=== PATIENT | female | born 1965 | race Caucasian/White ===

== ENCOUNTER 2024-10-26 09:54 | Outpatient (OUT) | payer OTHER, SELFPAY ==
[2024-10-26 10:10] LABS: Basophils Percent Auto 0.5 % (0.2-2.0); Eosinophils Absolute Auto 0.1 10^3/uL (0.0-0.7); Eosinophils Percent Auto 2.2 % (0.9-7.0); Hematocrit 47.1 % (36.0-48.0); Hemoglobin 15.5 g/dL (12.0-16.0); Immature Granulocytes Abs Auto 0.05 10^3/uL (0.00-0.03); Immature Granulocytes Pct Auto 0.8 % (0.0-0.5); Lymphocytes Absolute Auto 2.5 10^3/uL (1.2-3.8); Lymphocytes Percent Auto 38.5 % (20.5-60.0); Mean Corpuscular HGB Conc 32.9 g/dL (29.9-35.2); Mean Corpuscular Hemoglobin 29.3 pg (26.7-34.0); Mean Platelet Volume 10.2 fL (9.5-13.5); Monocytes Absolute Auto 0.7 10^3/uL (0.3-0.8); Monocytes Percent Auto 11.4 % (1.7-12.0); Neutrophils Percent Auto 46.6 % (43.0-75.0); Platelet Count 239 10^3/uL (150-450); Red Blood Count 5.29 10^6/uL (4.20-5.40); Red Cell Distribution Width 13.1 % (11.0-15.0); White Blood Count 6.5 10^3/uL (4.0-11.0)
[2024-10-26 10:59] LABS: Alanine Aminotransferase 52 U/L (14-59); Albumin Globulin Ratio 1.2; Albumin Level 4.2 g/dL (3.4-5.0); Alkaline Phosphatase 78 U/L (46-116); Anion Gap 27.4; Aspartate Amino Transferase 27 U/L (15-37); Bilirubin Total 0.6 mg/dL (0.2-1.0); Calcium 9.1 mg/dL (8.5-10.1); Carbon Dioxide 12.5 mmol/L (21.0-32.0); Chloride 103 mmol/L (98-107); Chol HDL Ratio 4.4; Cholesterol 204 mg/dL (<=200); Estimated GFR (African America >60 (>=60 mL/min/1.73m^2); Estimated GFR (Non-African Ame 57 (>=60 mL/min/1.73m^2); Globulin 3.5 g/dL; Glucose 91 mg/dL (74-106); HDL Cholesterol 46 mg/dL (40-60); Potassium 3.9 mmol/L (3.5-5.1); Sodium 139 mmol/L (136-145); Thyroid Stimulating Hormone 1.768 uIU/mL (0.358-3.740); Total Protein 7.7 g/dL (6.4-8.2); Triglycerides 111 mg/dL (<=150); VLDL CHOLESTEROL 22.2 mg/dL
== END 2024-10-26 09:55 | disposition home or self-care (01) ==
LOC: LAB 09:55
PROVIDERS: PCP Internal Medicine; Visit Provider Internal Medicine
DX: Z00.00 Encounter for general adult medical examination without abnormal findings (principal)
CPT/HCPCS: 36415; 80053; 80061; 84443; 85025

== ENCOUNTER 2024-11-01 14:56 | Outpatient (OUT) | payer OTHER, SELFPAY ==
--- OUTSIDE RECORDS SUMMARY | 2024-11-01 15:18 | XMS_ITS | CCD ---
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 Name Role Phone Isaiah Barcenas Unavailable Jerod Callaway Unavailable Chidi Kwong Unavailable TANVIR, DR KAUFFMAN Consulting Unavailable BALL, DR KAUFFMAN Primary Care Unavailable BALL, DR KAUFFMAN Admitting Unavailable BALL, DR KAUFFMAN Attending Unavailable BALL, DR KAUFFMAN Primary Care Unavailable BALL, DR KAUFFMAN Admitting Unavailable BALL, DR KAUFFMAN Attending Unavailable BALL, DR KAUFFMAN Consulting Unavailable BRENT, DR JEROD Griffin Consulting Unavailable TINO RAMEY Primary Care Physician [phone] Juan Maddox Attending Unavailable Ball, Tino Primary Care Unavailable GonzalezDale Attending Unavailable GonzalezDale Admitting Unavailable Tanvir, Tino Primary Care Unavailable Nawaf Berry Attending Unavailable Nawaf Berry Admitting Unavailable Jerod Callaway Attending Unavailable Jerod Callaway Admitting Unavailable Tanvir, Tino Primary Care Unavailable Isaiah Barcenas Attending Unavailable Isaiah Barcenas Admitting Unavailable Tanvir, Tino Primary Care Unavailable Tanvir, Tino Primary Care Unavailable Gonzalez, Dale Admitting Unavailable Dale Gonzalez Attending Unavailable Tanvir, Tino Primary Care Unavailable GonzalezDale pino Admitting Unavailable GonzalezDale minor Attending Unavailable Tanvir, Tino Primary Care Unavailable Jerod Callaway Attending Unavailable Jerod Callaway Admitting Unavailable Tino Ramey Unavailable Allergies Allergy Classification Reported Allergen(s) Allergy Type Date of Onset Reaction(s) Facility (1 source) No Known Medication Allergies; Translations: [No Known Medication Allergies] Propensity to adverse reactions (disorder) [facility] Repository (1 source) patient allergy list reviewed by nurse or physicia Propensity to adverse reactions 5 Comment:Done Nextly Other Medications Current Medications Medication Drug Class(es) Dates Sig (Normalized) Sig (Original) acetaminophen 325 mg / HYDROcodone bitartrate 5 mg oral tablet (10 sources) Opioid Agonist Start: 02-04-2021 Alexandria 325 mg-5 mg oral tablet 1 tab(s), Oral, q6hr for pain, 12 tab(s), Refill(s) 0 Start Date: 02/04/21 Status: Ordered HYDROcodone-Acet aminophen 5-325 MG Not Available Oral for 3 Days Active Calcium Citrate (11 sources) Calcium Citrate Active cholecalciferol 0.025 mg oral tablet (1 source) Vitamin D Start: 02-11-2021 take 1 tablet by mouth once daily calcium (as carbonate)-vitamin D 90 mg-25 mcg (1000 intl units) oral tablet See Instructions, Refill(s) 0, one tablet by mouth daily Start Date: 02/11/21 Status: Ordered docusate sodium 100 mg oral capsule (1 source) Docusate Sodium 100 MG Not Available Oral for 10 Days Active Fish Oils (1 source) Start: 02-11-2021 take 1 capsule by mouth once daily EPA Fish Oil 1000 mg oral capsule 1,000 mg = 1 cap(s), Oral, Daily, Refills(s) 0 Start Date: 02/11/21 Status: Ordered hydrocortisone acetate 10 mg/ml / pramoxine hydrochloride 10 mg/ml rectal foam (1 source) Corticosteroid Proctofoam HC 1- 1 % Not Available External for 30 Days Active Magnesium (11 sources) Magnesium Active melatonin 5 mg oral tablet (12 sources) Start: 02-11-2021 take 5 mg by mouth once daily at bedtime melatonin 5 mg, Oral, Once a day (at bedtime), Refills(s) 0 Start Date: 02/11/21 Status: Ordered Melatonin Active meloxicam 15 mg oral tablet (15 sources) Nonsteroidal Anti-inflammatory Drug Start: 02-11-2021 take 1 tablet by mouth once daily meloxicam 15 mg oral tablet 15 mg = 1 tab(s), Oral, Daily, # 30 tab(s), Refills(s) 0 Start Date: 02/11/21 Status: Ordered Vitamin D (11 sources) Vitamin D Active work limitations (1 source) Start: 02-11-2021 work limitations work limitations, Patient seen today in clinic okay to return to work 02/11/21 no twisting, no lifting over 10lbs x 4 weeks, Print Requisition, Compound Start Date: 02/11/21 Status: Ordered Completed/Discontinued Medications Medication Drug Class(es) Dates Sig (Normalized) Sig (Original) hydrocortisone 25 mg/ml topical cream (13 sources) Corticosteroid Start: 12-30-2021 Anusol-HC 2.5 % 1 application Externally Twice a day for 14 days Dec, Not-Taking lidocaine hydrochloride 0.02 mg/mg topical gel (14 sources) Antiarrhythmic, Amide Local Anesthetic Glydo 2 % Not Available External for 7 Days Not-Taking Problems Active Problems Problem Classification Problem Date Documented Date Episodic/Chronic Acute bronchitis (2 sources) Acute bronchitis; Translations: [Acute bronchitis due to other specified organisms] Onset: 12-18-2014 Episodic Anal and rectal conditions (15 sources) Anal fissure; Translations: [Anal fissure, unspecified] Onset: 12-30-2021 Resolved: 12-30-2021 Episodic Asthma (3 sources) Uncomplicated asthma; Translations: [Unspecified asthma, uncomplicated] Onset: 02-23-2014 Chronic E Codes: Fall (1 source) Fall; Translations: [Unspecified fall, initial encounter] Onset: 10-27-2022 Episodic Hemorrhoids (15 sources) Hemorrhoids; Translations: [Unspecified hemorrhoids] Onset: 12-30-2021 Resolved: 12-30-2021 Episodic Other connective tissue disease (1 source) H/O: arthrodesis; Translations: [Arthrodesis status] Episodic Other nervous system disorders (14 sources) Ulnar neuropathy; Translations: [Lesion of ulnar nerve, left upper limb] Chronic Other nervous system disorders (2 sources) Lesion of ulnar nerve, left upper limb Onset: 12-04-2021 Resolved: 01-01-2022 Chronic Other nervous system disorders (11 sources) Chronic pain; Translations: [Other chronic pain] Chronic Other nervous system disorders (5 sources) Other chronic pain Onset: 01-12-2022 Resolved: 05-29-2022 Chronic Other non-traumatic joint disorders (1 source) Pain in elbow; Translations: [Pain in unspecified elbow] Onset: 10-27-2022 Episodic Other nutritional; endocrine; and metabolic disorders (3 sources) Obese class I; Translations: [Body mass index 34.0-34.9, adult] Onset: 01-06-2016 Chronic Other nutritional; endocrine; and metabolic disorders (1 source) Obesity; Translations: [Obesity, unspecified] Chronic Other nutritional; endocrine; and metabolic disorders (1 source) Simple obesity ; Translations: [Other obesity due to excess calories] Onset: 01-06-2016 Chronic Other nutritional; endocrine; and metabolic disorders (1 source) Overweight; Translations: [Overweight] Episodic Residual codes; unclassified (2 sources) Obstructive sleep apnea syndrome; Translations: [Obstructive sleep apnea] Onset: 03-16-2016 Chronic Residual codes; unclassified (1 source) Symptom: generalized; Translations: [Other general symptoms and signs] Episodic Spondylosis; intervertebral disc disorders; other back problems (20 sources) Cervical disc disorder; Translations: [Cervical disc disorder, unspecified, unspecified cervical region] Onset: 11-03-2021 Resolved: 05-29-2022 Chronic Spondylosis; intervertebral disc disorders; other back problems (11 sources) Spinal stenosis, lumbar region with neurogenic claudication; Translations: [Radiculopathy, lumbar region] Onset: 06-25-2014 Resolved: 05-29-2022 Episodic Superficial injury; contusion (1 source) Contusion of hip; Translations: [Contusion of unspecified hip, initial encounter] Onset: 10-27-2022 Episodic Unclassified (1 source) Hemorrhage of anus and rectum; Translations: [Hemorrhage of anus and rectum] Onset: 04-09-2022 Unclassified (1 source) Z01.810 - Encounter for preprocedural cardiovascular examination; Translations: [Z01.810 - Encounter for preprocedural cardiovascular examination] Onset: 03-25-2022 Unclassified (1 source) K92.1 - Melena; Translations: [K92.1 - Melena] Onset: 02-13-2022 Unclassified (1 source) Z01.812 - Encounter for preprocedural laboratory examination; Translations: [Z01.812 - Encounter for preprocedural laboratory examination] Onset: 02-11-2022 Unclassified (1 source) M48.062 - Spinal stenosis, lumbar region with neurogenic claudication; Translations: [M48.062 - Spinal stenosis, lumbar region with neurogenic claudication] Onset: 12-11-2021 Unclassified (1 source) K62.89 - Other specified diseases of anus and rectum; Translations: [K62.89 - Other specified diseases of anus and rectum] Onset: 11-16-2021 Unclassified (1 source) Exposure to acute respiratory syndrome coronavirus 2; Translations: [Contact with and (suspected) exposure to COVID-19] Past or Other Problems Problem Classification Problem Date Documented Da te Episodic/Chronic Cardiac dysrhythmias (1 source) Palpitations; Translations: [Palpitations] Onset: 01-06-2016 Episodic Gastrointestinal hemorrhage (1 source) Melena Onset: 12-30-2021 Resolved: 12-30-2021 Episodic Malaise and fatigue (1 source) Malaise and fatigue; Translations: [Other malaise and fatigue] Onset: 12-18-2014 Episodic Neoplasms of unspecified nature or uncertain behavior (1 source) Neoplasm of uncertain behavior of skin; Translations: [Neoplasm of uncertain behavior of skin] Onset: 08-31-2017 Episodic Nonspecific chest pain (1 source) Chest pain; Translations: [Other chest pain] Onset: 01-06-2016 Episodic Other connective tissue disease (1 source) Muscle pain; Translations: [Unspecified myalgia and myositis] Onset: 01-06-2016 Episodic Other infections; including parasitic (1 source) History of parasitic disease; Translations: [Personal history of other infectious and parasitic disease] Onset: 01-06-2016 Episodic Other nervous system disorders (1 source) Paresthesia; Translations: [Paresthesia of skin] Onset: 06-25-2014 Episodic Other non-traumatic joint disorders (1 source) Joint pain; Translations: [Pain in unspecified joint] Onset: 01-06-2016 Episodic Other upper respiratory infections (1 source) Acute sinusitis; Translations: [Acute sinusitis, unspecified] Onset: 12-18-2014 Episodic Residual codes; unclassified (2 sources) Asymptomatic menopausal state Onset: 12-04-2021 Resolved: 01-01-2022 Episodic Residual codes; unclassified (1 source) Sleep disorder; Translations: [Persistent disorder of initiating or maintaining sleep] Onset: 06-03-2016 Episodic Sprains and strains (1 source) Neck sprain; Translations: [Neck sprain and strain] Onset: 06-25-2014 Episodic Results Test Name Value Interpretation Reference Range Facility Coding Summary.on 10-29-2022 Coding Summary. CD:[id number] Gh 0bWw+PGhlYWQ+PM8MKRPuU 06sgHAseV5AB3pUUM9RCGS YJTDAVD9RWB6nxRR7JSinT 2VybiAv ZmnulOTxIT08CNz2IGS4sA wtWLybwW8ycATbH6m9YeOp EG66mP49WTsjNVHkEqD0Xb ZpbjsgbWFy M8yxMyMcdIEcHoz+PHRhYm xlIHdpZHRoPScxMDAlJyBz vTzkJI0zYu7rGNClJXMrmB xhcHNlOiBj k9eyKQDfJAupMO0cyGmkL2 FilTT8VYPhp3z4Ey94qYE+ OXReVJV2jVllKNgav666Sq Jjp4bdKVB3 pJVjVTeqKQN6J68nx8H5GK LpAYQwWIX2rOX5fA1mtJmy iaicD9DazUOzSrS8ONA3uV ZbjR6hlYag zrxdaE2pGdd+H84MYD3FYZ AFWV6NEmr8X0XkKnouqNX+ KQ54JCRcHH92wNLmjZPbg8 holLn4XmGn UYYwMPZ8yAjyRZhvv2KgDP FeS67kaSNei2B2JCEjwWme qQWzIeIxxXV6yG2cHOsdle izg6ajqliz Awmam5htun15nA76Z43dQY goHRCcHAO3SBLeNYYcjPyr ql3pyL3nJv2+WRysm1nvi0 jtzFr2ObZu JPMserEauVftFUO2r8AxZt 65T4BmwZjnl0TaEik2fi39 iHGve9V1tQT8HGhrCDUuhJ 5gVOlwOhP4 SAXuSnFdaH22eKXqUCauQu 1mfUglqLobMB2gKYAkhqgp FUKqxI6iIBRegCMlnFeqNL 4wNTBpbjtm u723YhSkCJU4BGYidAFqT6 KgwS7eOwXzHBZdNJCjY8Rg sHAjZAudY633OJviLcE8IY LtpjBkI8Eb PBNcqVakFuO6y2W3Dt4Wb2 GwlxheQGL1GMhaWWBuBpAi EwAoVkW5W3XhCbm7JFNwbX kwBS4jS5Jz YZUjjhzrxxopxYY4PIApYS WrsZ63mEXcDNsvZx8fb7X4 k414MOTfLUJqxB83Fk1xmI ogMTBwdCBU zQ0qabxef8rrmyzkTtQqIN XmUJn4OYa9QYUvoCoeXpFl ANI1KkX3XXL1wTNmyJ1jqM sztqpkeC1o Oyc+Z81hfV3lXLP2LSW3ei biXTZdfnVrOZ57EZ98M4Ci PjwvdGFibGU+PGRpdiBzdH klHZ1kLhCs n6ncl9BeNHibG1MrMXXnGV dbZtz5EJTeTHK7jIC7hP8y IZJsJUari8W2kYL0D6Brdb Plwk7nk0wl NFRwBFodN45kgAIcj4C2WJ NkbBH9UPJcoJxcIeKqbZ95 Oyc+KUTxmKtvk4KoXwwce8 ueg1xgrEj5 QsEgKEJdsoDcxLduVQS2c1 DeFo71A65cXDruDYChBRRi MRWuFGBenIykdf3puZ6fDh 8+PGNvbCB3 kLS0yN8lROSyZuY4PEyqR6 38EiPoaOAoNhoql3hzr1sx tTy9QjIyQVXkxrFysRwhNF Q4t3EuFp41 W18eUAmlATHjVOMpPKNdHV WxvIndre3ejK1wZi3+PC9j l7siiq81wQ15cDS+PHRkIH J7kOqoHBjs XAPleW6kJQmdRbO8JHJxSu HlbT98pVTpXEukUt2yfJij bBuuWQ6mCYNxycaxd018Zc Rcu1viSZAp pAEqFYelUUZ0E59jg6S4JM FoJTQzBXJ4zLR9cN5njXkk bjogbGVmdDsgdmVydGljYW qrDKpcC475 IHRvcDsnPlBhdGllbnQgTm SeJNs7Q9PjJmn2NLVmxYta GH2meLViDChnIq7ygYpwjO dwGE2mBBLs tzzym122XkBki8qwXDEhcJ KoLGjtZAS9O13ds9O1LFMk KAKfMRN3fMR8rZ8jjDdqke ogbGVmdDsg nfEnbLeuGPytIWbnV579WD RvcDsnPkJpcnRoIERhdGU6 TU48RZ79qINfu9X4kBG3G7 BhZGRpbmct zxwxvKF5ATLuIRJnqA12Fu 2qnMraGn4gFHGiBQD8EWQz zGWsJ3YsnT9qQzNyIQLdXU JlB8RecPId RJkfP672FDrkFrA5FTKbam ZxC7VzIAWnoJppEjP1u0D7 Iu2BT6H3RQ85AX33iOTrk5 X3eUB3J6Jz TWOgkcjqcnxlnEU7LRJqKK XvnD88Sj9ydHmrYi7zSGIf PLD0OXKmhYAzE5WcrW4jHw AjMDAwMDAw Y6AoqJEbXWhpD573CKtmSw D2JVMhygMgA8ZhZIVuxYsv CzE3g5R2Op8EUBf9VN52SI 52oODvi2S5 gBY5A2CkZNZtikvnhihbzR N6TKOwHYRrmQ76Oo9zdExk Xn7eNUWsPBX4LVQxvAIkQ4 ByyE2aAgCs OJIcXXUxS7BhhBBvUVcnI9 91ILlpWyY6JFTrokCfL3Xc KIIsnAcjKjT5z9X9Ki7BSM YoPZ91UGW6 oAL0LG35DW36Q8CcSxbbaQ FibGU+PHRhYmxlIHdpZHRo JYdyLYMnWpQujRijSS8bLl 9yZGVyLWNv dHwecCXzHoSep0nhIWTqKN mhZZ8ozUguS2DfuVT4CULx l7o9Mn26P68yQ7XbxGP+PG LiyAE8cRA9 yN7bLnEpDnZ9ZHxzN538Qb EbkJXcPigch6yld9dfyZy4 JeC6VXFfopTcoOftJOJ0m1 ToPb17W93d IHdpZHRoPSIxNSUiIHZhbG fqni3ixD3vHu8+PGNvbCB3 cOA4lQ5uMrYtLiQ9LBhrA7 49InRvcCIv Kcndf7nea7hmeNc3OoKaUS UypkKlnMcyNRF6u9LeEu52 A3YgtNrie8FzBok6cb05iC Msq1B3vGJ2 X2WyDSIucnldgGIivNicVX 3dOYGzdkzmAMMpvM4nZFMz B0f7UfPtZgJ7KUsiB8Ariw S9LMZsiINm HHqxJQR8Y02xl1U1ZOWmPC YdWOP7tDJ9mQ9bzNjdzelp bGVmdDsgdmVydGljYWwtYW mdD980XIWw zWcbHXYwjL8eEEUvrQNrpL hgEF8iBUPenqqbVqiUXGli MAFUE3AWMIJIED02TB81zF Lik4C2mIY8 A8IxSUUswapftkruyOJ3GL AeHRVqtU47rLQzOYqqPq6x g8Z9g216IWVjPBRrxB27Fk 9udDogMTBw tLZRmR1cdxarf4phsjfwIe EkXUNbXTl7EHa7PIPajUqz QtSdKTI5SsB8DIQ9dCRnaL 1hbGlnbjog hW2xBjd+FTIqJXOjCCz6IX wvdGQ+XQFnJSS6uJtrFKtn UIHkoB7gAVWjJ8a5YcPdVo Z1QZrxR1Pu MZMmvgkbQe09nV9gWfLdYs G3TGoeF3YslgP1RBQfzCKd DZytPFZ8G33dj3V0JWTyZN FlPBL8wNN8 jG0xeInbbsxwpLBjvMldxj XzjWbfBXnhCOnlU555SIVc dEqpJtU7VVfoXJSjHX01UL 86oHBfi1X1 iOW8P2TpOHQujmnozpehwU E2XKFtSWLhbS41mPZwSKjs Zw4cu7L7z029ZLNnMQEchD 73Af4hfWix OURvvOIIiM6wvfxur0tncm siUoSkHHWfXCb2CEh2DQOo hXafDlJgBLG4OnX5ONX8fP KqiT0qjPgc gixuzK6nUgb+RmVtYWxlPC 90NS11nKUdf7T4sVD9E3Ze EKOivngivmudcGR1SBEhYP NpgB39cCOf DRaoKd1rl4X1i496DZJyFY DceD97Ve0ryVmcFKLddICS sH2hzdxqo5ihpyfkGsLsZI GvUKf4QVr7 KVUspRszLxXiDWG1UcL8BR I3nVVcxA3fnFkyqwbkkU6t Oyc+KZ8oqtxtqwB3OV56AG 19J2ZcDpbb dGFibGU+PHRhYmxlIHdpZH OpVHaeZDHcHlMdlQjyRU3w Pq2pTENnONGvpWfklMDfOt Opd6erVCAu AZrcUW7ttYbvG4IvhMO4IC Moo8u1Gb47E84sW6MoyFX+ CXRgrNL9qOQ0lJ4xNjNnJf V3NNgzX839 NjZgcXMzYtakv1tct9sndV p7CfCbRVTyosVuqAztWAT2 b0OiVp72M29sATfpCHGsYO IyMCUiIHZh fDhomm6luP4xYn1+PGNvbC Y6hMS5kZ7cZnAmKbA5COzo H202QpJwrICdVqyrB88iF4 JvdXA+PHRy Ahq7LASooKjyLT8qtGJsJL tnWx3fNQF8EfJiYkRbKQkz M7FlPCIiziavifhecVE4SC CeJJJxoU15 Je3ioLtiDg0lFNOfKBL6AO CznIBdL6ZzyI3oFnTtONQc XRPjQ2VldVLeYXqaX404UU fuBaH6HCBr akMiE8FyQADoyViaDqJ5y8 Y2Il0QzUioyTOyNB6mFpRb PRo9C3VgXyr9BMWggTqiJG 0ncGFkZGlu Sb8qxOpoeJxpGC6qEAZber xtp647PzLit4diMYPrxLHa PVpfEWU3P35zy4O6BKKhKI LtMSE7cEC7 rU2gbKcdxgqksQOmjNknub RwsPeoZWxsFJkvH140ISRf dRbdGzZHDvi1I1DlHvf4HF DioNgvUE6c yEKbRWwnCc2ffLwvmYljFV 9lSCPekcauh057MkMfy6dl VCRuwCSdHMfwJEU0B43uw9 U6MMRbRDTx GRT3iOR9bR6xiNipkaipjL VmdDsgdmVydGljYWwtYWxp N726GVJfjAvfXv1AYhz2A0 FdWrm1QRGs vYarUL4jqINgAZteGm8ztC lenFysDD4gTZNrbgwyt894 AeWaa0loPDUbfZZpVZcaYN O5G22zs1Z3 JUUyPRKcHXO9sZV6sM7aqV lnbjogbGVmdDsgdmVydGlj AFznRXeuZ118DUMepFtiZi BheWVyOjwv dGQ+WT85uh65T9JwBjvrYy o2EGVdOUE1vON2jV0xZRBx CLriy2B7rWN8T3KqimCjhg 8of3vjPASk ZTog (more content not included)... Normal [facility] Consent for Treatmenton 09-29 Consent for Treatment [id number] [id number]:127 Normal [facility] Discharge Instructionson Discharge Instructions [id number]. [id number]:127 Normal [facility] ED Clinical Summaryon 2022 ED Clinical Summary [address] [address] ED Clinical Summary Person Information Name: MILENA AQUINO Rubi/[facility] Age: 56 Years : 1965 Sex: Female Language: Croatian PCP: TINO RAMEY DO Marital Status: Visit Id: Visit Reason: Elbow injury - Minor; Hip injury - Minor; Fall; FELL ON ICE Speciality: Acuity: 4 Enc Type: Emergency Med Service: Emergency Arrival: 10/27/2022 10:47:01 Discharge: 10/27/2022 11:47:31 LOS: 000 01:00 Checkin: 10/27/2022 10:47:01 Checkout: 10/27/2022 11:47:31 Dispo Type: Home (Routine DC) EVENTS: Event Name Event Status Request Date/Time Start Date/Time Complete Date/Time Arrive Complete 10/27/2022 10:47:01 10/27/2022 10:47:01 10/27/2022 10:47:01 Document Home Meds Request 10/27/2022 10:47:01 Triage Complete 10/27/2022 10:47:01 10/27/2022 10:50:26 10/27/2022 10:50:26 Bed Assign Complete 10/27/2022 10:47:54 10/27/2022 10:47:54 10/27/2022 10:47:54 Dr Exam Complete 10/27/2022 10:47:54 10/27/2022 10:48:27 10/27/2022 10:48:27 RN Exam Complete 10/27/2022 10:47:54 10/27/2022 10:52:25 10/27/2022 10:52:25 Registration Complete 10/27/2022 10:48:27 10/27/2022 11:05:04 10/27/2022 11:05:04 Dr Exam Complete 10/27/2022 10:50:05 10/27/2022 10:50:05 10/27/2022 10:50:05 X-Ray Complete 10/27/2022 10:50:46 10/27/2022 11:02:04 10/27/2022 11:21:35 Workers Comp Request 10/27/2022 10:50:51 Reg Complete Request 10/27/2022 11:05:04 Reg Bed Request Complete 10/27/2022 11:05:04 10/27/2022 11:05:04 10/27/2022 11:05:04 Wet Read Complete 10/27/2022 11:21:35 10/27/2022 11:34:14 10/27/2022 11:34:14 Discharge Complete 10/27/2022 11:36:28 10/27/2022 11:47:38 10/27/2022 11:47:38 Transfer Complete 10/27/2022 11:47:38 10/27/2022 11:47:38 10/27/2022 11:47:38 ADDRESS: [address] [place] [phone] PHYS DOC NOTES: MEDICAL INFORMATION: Prescriptions Given: Medications to Continue with No Changes Other Medications acetaminophen-hydrocod one (Alexandria 325 mg-5 mg oral tablet) 1 Tablets By Mouth every 6 hours as needed for pain. Refills: 0. calcium-vitamin D (calcium (as carbonate)-vitamin D 90 mg-25 mcg (1000 intl units) oral tablet) one tablet by mouth daily. melatonin 5 Milligram By Mouth once a day (at bedtime). meloxicam (meloxicam 15 mg oral tablet) 1 Tablets [facility] 0. Patient seen today in clinic okay to return to work 02/11/21 no twisting, no lifting over 10lbs x 4 weeks. Refills: 0. omega-3 polyunsaturated fatty acids (EPA Fish Oil 1000 mg oral capsule) 1 Capsules By Mouth every day. PATIENT EDUCATION INFORMATION: Instructions: Musculoskeletal Pain Follow up: With: Address: When: [facility]: [facility] [phone] In 3 days 10/30/2022 DIAGNOSIS: Contusion, hip; Elbow pain; Fall Normal [facility] ED Note-Physicianon 10-27-19 ED Note-Physician Basic Information Time Seen: Juan Maddox DO 10/27/2022 10:48 Chief Complaint pt reports slipping and falling on ice, hit her l hip and elbow. reports pain to area. pt states this happened at work. History of Present Illness 56-year-old female comes to the ED for evaluation of injury status post fall. Patient states she was at work and slipped on the ice, falling on her left side. She complains of pain to the left elbow and the left hand. She denies strike her head pain no head, neck, back, chest or abdominal pain. No acute weakness or paresthesias. She presents via private vehicle. Ambulating without difficulty. No prior treatments. Review of Systems A 10 point review of systems is negative except as noted above. Medical and Surgical History: Reviewed and noted Social history: Lives at home Tobacco: Denies Physical Exam Vitals & Measurements T: 36.6 ?C(Oral) HR: 69(Peripheral) RR: 20 BP: 130/82 SpO2: 100% HT: 165 cm WT: 82 kg BMI: 30.12 Nurses notes and vital signs reviewed and patient is not hypoxic. General: The patient appears well, resting comfortably. Skin: Warm, dry. Head: Atraumatic. Neck: No JVD. Eye: Normal conjunctiva. Ears, Nose, Mouth, and Throat: Moist mucous membranes. Cardiovascular: Strong distal pulses. Chest wall: Respiratory: Respirations are nonlabored. Back: Normal range of motion. Musculoskeletal: Generalized tenderness over the left elbow. Full range of motion of flexion extension supination pronation. No soft tissue swelling, ecchymosis, erythema. No tenderness of the shoulder. Strong distal pulses. Denies tenderness over the left hip. Good range of motion. No gross deformity. Gastrointestinal: Urological: Neurological: Awake and alert. No focal deficits. Follows commands. Psychiatric: Cooperative. Medical Decision Making X-rays show no evidence of fracture or dislocation. The diagnostic limitation of x-rays were discussed. It was explained that follow-up imaging may be necessary. Educated to rice therapy. Patient reports this is a workers comp claim and is given [employer] followup. Patient was encouraged to return to the ED if symptoms worsen or change. Assessment/Plan Contusion, hip (S70.00XA: Contusion of unspecified hip, initial encounter) Elbow pain (M25.529: Pain in unspecified elbow) Fall (W19.XXXA: Unspecified fall, initial encounter) Orders: XR Elbow 3+ Views Left XR Hip 2-3 Views Left + Pelvis Disposition Plan Patient Discharge Condition Disposition: Discharged home Condition: Improved and stable Counseled: Patient and/or family were counseled to workup, results, treatment plan and follow-up recommendations Discharge Prescription List Prescriptions No active prescription medications Follow-up With When Contact Information [facility]: [facility] [phone] In 3 days 10/30/2022 EST Additional Instructions: Patient Education Musculoskeletal Pain Attestation Patient seen and evaluated by the physician creative assistant. Attending physician was present in the emergency department and supervised care. This visit was performed by both the physician and an APC. I performed all aspects of the MDM as documented. This report was transcribed using voice recognition software. Every effort was made to ensure accuracy, however, inadvertently computerized magazine filler mistakes may be present. Appropriate healthcare PPE was used in evaluating this patient. The patient was placed in a mask. The healthcare provider was wearing mask, gloves, and utilizing proper hand hygiene. All equipment was properly cleansed. Problem List/Past Medical History Ongoing No qualifying data Historical No qualifying data Procedure/Surgical History Cervical spinal fusion, section. Medications Inpatient No active inpatient medications Home calcium (as carbonate)-vitamin D 90 mg-25 mcg (1000 intl units) oral tablet, See Instructions EPA Fish Oil 1000 mg oral capsule, 1000 mg= 1 cap(s), Oral, Daily melatonin, 5 mg, Oral, Once a day (at bedtime) meloxicam 15 mg oral tablet, 15 mg= 1 tab(s), Oral, Daily [place] 325 mg-5 mg oral tablet, 1 tab(s), Oral, q6hr, PRN, Not taking work limitations, 0 Allergies No Known Medication Allergies Social History Alcohol - Denies Alcohol Use, 02/11/2021 Substance Abuse - Denies Substance Abuse, 02/11/2021 Tobacco - Denies Tobacco Use, 02/11/2021 Never (less than 100 in lifetime) Tobacco Use:., 02/11/2021 Lab Results No qualifying data available. Diagnostic Results XR Elbow 3+ Views Left 10/27/22 12:33:22 IMPRESSION: NO DISPLACED FRACTURE OR SIGNIFICANT POSTTRAUMATIC COMPLICATION IDENTIFIED. EXAM: XR Elbow 3+ Views Left DATE: 10/27/2022 CLINICAL HISTORY: Pain, Traumatic. COMPARISON: None available. TECHNIQUE: AP, lateral, oblique, and axial radiographs of the left elbow were obtained. FINDINGS: There is no fracture, significant joint effusion, dislocation, worrisome bone destruc (more content not included)... Normal [facility] Comment on above: Result Comment: Elec tronically Signed By: Jaskaran Bang PA-C\.br\Date and Time Signed: 10/27/22 14:15 EST\.br\Electronically Co-Signed By: Juan Maddox DO\.br\Date and Time Co-Signed: 10/27/22 17:32 EST ED Patient Education Noteon 10-27-2022 ED Patient Education Note Orthopedics Musculoskeletal Pain Musculoskeletal pain refers to aches and pains in your bones, joints, muscles, and the tissues that surround them. This pain can occur in any part of the body. It can last for a short time (acute) or a long time (chronic). A physical exam, lab tests, and imaging studies may be done to find the cause of your musculoskeletal pain. Follow these instructions at home: Lifestyle ? Try to control or lower your stress levels. Stress increases muscle tension and can worsen musculoskeletal pain. It is important to recognize when you are anxious or stressed and learn ways to manage it. This may include: ? Meditation or yoga. ? Cognitive or behavioral therapy. ? Acupuncture or massage therapy. ? You may continue all activities unless the activities cause more pain. When the pain gets better, slowly resume your normal activities. Gradually increase the intensity and duration of your activities or exercise. Managing pain, stiffness, and swelling ? Take hltk-gtu-xizngtq and prescription medicines only as told by your health care provider. ? When your pain is severe, bed rest may be helpful. Lie or sit in any position that is comfortable, but get out of bed and walk around at least every couple of hours. ? If directed, apply heat to the affected area as often as told by your health care provider. Use the heat source that your health care provider recommends, such as a moist heat pack or a heating pad. ? Place a towel between your skin and the heat source. ? Leave the heat on for 20?30 minutes. ? Remove the heat if your skin turns bright red. This is especially important if you are unable to feel pain, heat, or cold. You may have a greater risk of getting burned. ? If directed, put ice on the painful area. ? Put ice in a plastic bag. ? Place a towel between your skin and the bag. ? Leave the ice on for 20 minutes, 2?3 times a day. General instructions ? Your health care provider may recommend that you see a physical therapist. This person can help you come up with a safe exercise program. Do any exercises as told by your physical therapist. ? Keep all follow-up visits, including any physical therapy visits, as told by your health care providers. This is important. Contact a health care provider if: ? Your pain gets worse. ? Medicines do not help ease your pain. ? You cannot use the part of your body that hurts, such as your arm, leg, or neck. ? You have trouble sleeping. ? You have trouble doing your normal activities. Get help right away if: ? You have a new injury and your pain is worse or different. ? You feel numb or you have tingling in the painful area. Summary ? Musculoskeletal pain refers to aches and pains in your bones, joints, muscles, and the tissues that surround them. ? This pain can occur in any part of the body. ? Your health care provider may recommend that you see a physical therapist. This person can help you come up with a safe exercise program. Do any exercises as told by your physical therapist. ? Lower your stress level. Stress can worsen musculoskeletal pain. Ways to lower stress may include meditation, yoga, cognitive or behavioral therapy, acupuncture, and massage therapy. This information is not intended to replace advice given to you by your health care provider. Make sure you discuss any questions you have with your health care provider. Document Released: 09/13/2006 Document Revised: 08/26/2018 Document Reviewed: 10/13/2017 Elsevier Patient Education ? 2019 GoTable. Normal [facility] ED Patient Summaryon 023 ED Patient Summary [address] [address] Patient Discharge Instructions Person Information Name: MILENA AQUINO Age: 56 Years Arrival Date: 10/27/2022 10:47:01 Discharge Diagnosis: Contusion, hip; Elbow pain; Fall Primary Care Physician: TINO RAMEY DO Provider Information Primary Provider: Juan Maddox DO Advanced Vamp Marker:Jaskaran Bang PA-C The exam and treatment you received in the Emergency Department were for an urgent problem and are not intended as complete care. It is important that you follow up with a doctor, nurse practitioner, or physician?s creative assistant for ongoing care. If your symptoms become worse or you do not improve as expected and you are unable to reach your usual health care provider, you should return to the Emergency Department. We are available 24 hours a day. MILENA AQUINO has been given the following list of patient education materials, prescriptions and follow-up instructions: Follow-up Instructions: With: Address: When: [facility]: [facility] [phone] In 3 days 10/30/2022 In the event that this physician does not participate in your insurance network, please consult with your insurance company to find a nearby participating provider. Patient Education Materials: Musculoskeletal Pain A MESSAGE TO ALL PATIENTS REGARDING OPIOIDS PRESCRIPTION OPIOIDS: WHAT YOU NEED TO KNOW Prescription opioids can be used to help relieve xvbvdezd-pf-iigfli pain and are often prescribed following a surgery or injury, or for certain health conditions. These medications can be an important part of the treatment but also come with serious risks. It is important to work with your healthcare provider to make sure you are getting the safest, most effective care. WHAT ARE THE RISKS AND SIDE EFFECTS OF OPIOID USE? Prescription opioids carry serious risks of addiction and overdose, especially with prolonged use. An opioid overdose, often marked by slowed breathing, can cause sudden . The use of prescription opioids can have a number of side effects as well, even when taken as directed: ? Tolerance?meaning you might need to take more of the medication for the same pain relief ? Physical dependence?meaning you have symptoms of withdrawal when a medication is stopped ? Increased sensitivity to pain ? Constipation ? Nausea, vomiting, and dry mouth ? Sleepiness and dizziness ? Confusion ? Depression ? Low levels of testosterone that can result in lower sex drive, energy, and strength ? Itching and sweating RISKS ARE GREATER WITH: ? History of drug misuse, substance use disorder, or overdose ? Mental health conditions (such as depression or anxiety) ? Sleep apnea ? Older age (65 years and older) ? Avoid alcohol while taking prescription opioids. Also, unless specifically advised by your health care provider, medications to avoid include: ? Benzodiazepines (such as Xanax or Valium) ? Muscle relaxants (such as Soma or Flexeril) ? Hypnotics (such as Ambien or Lunesta) ? Other prescription opioids KNOW YOUR OPTIONS Talk to your health care provider about ways to manage your pain that don?t involve prescription opioids. Some of these options may actually work better and have fewer risks and side effects. Options may include: ? Pain relievers such as acetaminophen, ibuprofen, and naproxen ? Some medication that are also used for depression or seizures ? Physical therapy and exercise ? Cognitive behavioral therapy, a psychological, goal-directed approach, in which patients learn how to modify physical, behavioral, and emotional triggers of pain and stress. IF YOU ARE PRESCRIBED OPIOIDS FOR PAIN: ? Never take opioids in greater amounts or more often than prescribed. ? Follow up with your primary health care provider. o Work together to create a plan on how to manage your pain. o Talk about ways to help manage your pain that don?t involve prescription opioids. o Talk about any and all concerns and side effects. ? Help prevent misuse and abuse o Never sell or share prescription opioids. o Never use another person?s prescription opioids. ? Store prescription opioids in a secure place and out of reach of others (this may include visitors, children, friends, and family). ? Safely dispose of unused prescription opioids: Find your community drug take-back program or your pharmacy mail-back program, or flush them down the toilet, following guidance from the Food and Drug Administration (www.fda.gov/Drugs/Res ourcesForYou). ? Visit www.cdc.gov/drugoverdo se to learn about the risks of opioids abuse and overdose. ? If you believe you may be struggling with addiction, tell your health care technician and ask for guidance or call [facility]?S National Helpline at 8-243-694-HELP. v Source: [place] Department of Health and Human Services/ActiViews (more content not included)... Normal [facility] Workers Comp Formson 023 Workers Comp Forms [id number]. [id number] Normal [facility] XR Elbow 3+ Views Lefton XR Elbow 3+ Views Left Exam Date/Time: 10/27/2022 11:21 EST Reason for Exam: Pain, Traumatic Report IMPRESSION: NO DISPLACED FRACTURE OR SIGNIFICANT POSTTRAUMATIC COMPLICATION IDENTIFIED. EXAM: XR Elbow 3+ Views Left DATE: 10/27/2022 CLINICAL HISTORY: Pain, Traumatic. COMPARISON: None available. TECHNIQUE: AP, lateral, oblique, and axial radiographs of the left elbow were obtained. FINDINGS: There is no fracture, significant joint effusion, dislocation, worrisome bone destruction, radiodense foreign bodies, or other acute findings identified. Mild to moderate osteoarthritic changes are present, predominantly of the radial head and coronoid process of the proximal ulna. FINAL REPORT Dictated: 10/27/2022 12:30 pm Abram Silva MD Signed (Electronic Signature): 10/27/2022 12:30 pm Signed by: Abram Silva MD Transcribed by: FREDIS Technologist: ORB [facility] XR Hip 2-3 Views Left + Pelv kyleigh 10-27-2022 XR Hip 2-3 Views Left + Pelvis Exam Date/Time: 10/27/2022 11:21 EST Reason for Exam: Pain, Traumatic Report IMPRESSION: NO DISPLACED FRACTURE OR SIGNIFICANT POSTTRAUMATIC COMPLICATION IDENTIFIED. EXAM: XR Hip 2-3 Views Left + Pelvis DATE: 10/27/2022 CLINICAL HISTORY: Pain, Traumatic. COMPARISON: Chest, abdomen and pelvis CTs 02/04/2021. TECHNIQUE: An AP view of the pelvis, and AP and lateral radiographs of the left hip were obtained. FINDINGS: There is no displaced fracture, dislocation, pelvic diastases, evidence of significant hematoma, or other acute findings identified. Mild degenerative changes of the hips, pubic symphysis, and lumbosacral junction, and an approximately 1 cm bone island within the medial right ilium are again noted. FINAL REPORT Dictated: 10/27/2022 12:28 pm Abram Silva MD Signed (Electronic Signature): 10/27/2022 12:28 pm Signed by: Abram Silva MD Transcribed by: FREDIS Technologist: MELLISSA [facility] CBC AUTO DIFFon 08-26-2022 BASO # 0.0 103/ul Normal 0.0-0.1 [facility] Comment on above: Performed By: #### C BC #### [facility] [address] [place] [address] Dr. Re Nieto Basophils/100 WBC (Bld) 0.5 % Normal 0.2-2.0 [facility] Comment on above: Performed By: #### C BC #### [facility] [address] [place] [address] Dr. Re Nieto EO # 0.1 103/ul Normal 0.0-0.7 [facility] Comment on above: Performed By: #### C BC #### [facility] [address] [place] [address] Dr. Re Nieto Eosinophils/100 WBC (Bld) 1.1 % Normal 0.9-7.0 [facility] Comment on above: Performed By: #### C BC #### [facility] [address] [place] [address] Dr. Re Nieto Erythrocyte distribution width (RBC) [Ratio] 13.5 % Normal 11.0-15.0 [facility] Comment on above: Performed By: #### C BC #### [facility] [address] [place] [address] Dr. Re Nieto Hematocrit (Bld) [Volume fraction] 45.4 % Normal 36.0-48.0 [facility] Comment on above: Performed By: #### C BC #### [facility] [address] [place] [address] Dr. Re Nieto Hemoglobin (Bld) [Mass/Vol] 15.6 g/dL Normal 12.0-16.0 [facility] Comment on above: Performed By: #### C BC #### [facility] [address] [place] [address] Dr. Re Nieto IG # 0.02 10e3/ul Normal 0.00-0.03 [facility] Comment on above: Performed By: #### C BC #### [facility] [address] [place] [address] Dr. Re Nieto IG % 0.3 % Normal 0.0-0.5 [facility] Comment on above: Performed By: #### C BC #### [facility] [address] [place] [address] Dr. Re Nieto LYMPH # 2.6 103/ul Normal 1.2-3.8 [facility] Comment on above: Performed By: #### C BC #### [facility] [address] [place] [address] Dr. Re Nieto Lymphocytes/100 WBC (Bld) 39.6 % Normal 20.5-60.0 [facility] Comment on above: Performed By: #### C BC #### [facility] [address] [place] [address] Dr. Re Nieto MANUAL DIFF REQ NO Normal [facility] Comment on above: Performed By: #### C BC #### [facility] [address] [place] [address] Dr. Re Nieto MCH (RBC) [Entitic mass] 30.2 pg Normal 26.7-34.0 [facility] Comment on above: Performed By: #### C BC #### [facility] [address] [place] [address] Dr. Re Nieto MCHC (RBC) [Mass/Vol] 34.4 g/dL Normal 29.9-35.2 [facility] Comment on above: Performed By: #### C BC #### [facility] [address] [place] [address] Dr. Re Nieto MCV (RBC) [Entitic vol] 88.0 fL Normal 81.0-99.0 [facility] Comment on above: Performed By: #### C BC #### [facility] [address] [address] [address] Re Nieto MONO # 0.6 103/ul Normal 0.3-0.8 [facility] Comment on above: Performed By: #### C BC #### [facility] [address] [address] [address] Re Nieto Monocytes/100 WBC (Bld) 9.7 % Normal 1.7-12.0 [facility] Comment on above: Performed By: #### C BC #### [facility] [address] [address] [address] Re Nieto NEUT # 3.2 103/ul Normal 1.4-6.5 [facility] Comment on above: Performed By: #### C BC #### [facility] [address] [place] [address] Dr. Re Nieto Neutrophils/100 WBC (Bld) 48.8 % Normal 43.0-75.0 [facility] Comment on above: Performed By: #### C BC #### [facility] [address] [address] [address] Re Nieto Platelet mean volume (Bld) [Entitic vol] 10.4 fL Normal 9.5-13.5 [facility] Comment on above: Performed By: #### C BC #### [facility] [address] [address] [address] Re Nieto PLT 245 103/ul Normal 150-450 [facility] Comment on above: Performed By: #### C BC #### [facility] [address] [address] [address] Re Nieto RBC 5.16 106/ul Normal 4.20-5.40 [facility] Comment on above: Performed By: #### C BC #### [facility] [address] [address] [address] Re Nieto WBC 6.5 103/ul Normal 4.0-11.0 [facility] Comment on above: Performed By: #### C BC #### [facility] [address] [address] [address] Re Nieto LIPID PROFILEon 08-26-2022 CHOL-HDL RATIO NORM SEE BELOW Normal [facility] Comment on above: Result Comment: 3.3 - 4.4 LOW RISK 4.4 - 7.1 AVERAGE RISK 7.1 - 11.0 MODERATE RISK >11.0 HIGH RISK Performed By: #### L IPID, CMP #### [facility] [address] [address] [address] Re Nieto Cholesterol [Mass/Vol] 255 mg/dL Critically high <=200 [facility] Comment on above: Performed By: #### L IPID, CMP #### [facility] [address] [address] [address] Re Nieto Cholesterol in HDL [Mass/Vol] 49 mg/dL Normal 40-60 [facility] Comment on above: Performed By: #### L IPID, CMP #### [facility] [address] [address] [address] Re Nieto Cholesterol in LDL [Mass/Vol] 186.4 mg/dL Normal [facility] Comment on above: Performed By: #### L IPID, CMP #### [facility] [address] [address] [address] Re Nieto Cholesterol.total/C holesterol in HDL [Mass ratio] 5.2 {ratio} Normal [facility] Comment on above: Performed By: #### L IPID, CMP #### [facility] [address] [address] [address] Re Nieto HDL NORMAL > or = 60 mg/dl - LO W CARDIOVASCULAR RISK <40 mg/dl - HIGH CARDIOVASCULAR RISK Normal [facility] Comment on above: Performed By: #### L IPID, CMP #### [facility] [address] [id number] Re Nieto LDL CALC NORMAL SEE BELOW Normal [facility] Comment on above: Result Comment: <100 mg/dl OPTIMAL 100 - 129 mg/dl NEAR OR ABOVE OPTIMAL 130 - 159 mg/dl BORDERLINE HIGH 160 - 189 mg/dl HIGH >190 mg/dl VERY HIGH Performed By: #### L IPID, CMP #### [facility] [address] [address] [address] Re Nieto Triglyceride [Mass/Vol] 98 mg/dL Normal <=150 [facility] Comment on above: Performed By: #### L IPID, CMP #### [facility] [address] [address] [address] Re Nieto VLDL CALC 19.6 mg/dL Normal [facility] Comment on above: Performed By: #### L IPID, CMP #### [facility] [address] [address] [address] Re Nieto PROF 14(COMP METB)on 022 Albumin [Mass/Vol] 4.3 g/dL Normal 3.4-5.0 [facility] Comment on above: Performed By: #### L IPID, CMP #### [facility] [address] [place] [address] Dr. Re Nieto Albumin/Globulin [Mass ratio] 1.3 {ratio} Normal [facility] Comment on above: Performed By: #### L IPID, CMP #### [facility] [address] [place] [address] Dr. Re Nieto ALP [Catalytic activity/Vol] 57 U/L Normal 46-116 [facility] Comment on above: Performed By: #### L IPID, CMP #### [facility] [address] [place] [address] Dr. Re Nieto ALT [Catalytic activity/Vol] 25 U/L Normal 14-59 [facility] Comment on above: Performed By: #### L IPID, CMP #### [facility] [address] [place] [address] Dr. Re Nieto Anion gap [Moles/Vol] 12.7 mmol/L Normal [facility] Comment on above: Performed By: #### L IPID, CMP #### [facility] [address] [place] [address] Dr. Re Nieto AST [Catalytic activity/Vol] 16 U/L Normal 15-37 [facility] Comment on above: Performed By: #### L IPID, CMP #### [facility] [address] [address] [address] Re Nieto Bilirubin [Mass/Vol] 0.7 mg/dL Normal 0.2-1.0 [facility] Comment on above: Performed By: #### L IPID, CMP #### [facility] [address] [place] [address] Dr. Re Nieto Calcium [Mass/Vol] 9.4 mg/dL Normal 8.5-10.1 [facility] Comment on above: Performed By: #### L IPID, CMP #### [facility] [address] [place] [address] Dr. Re Nieto Chloride [Moles/Vol] 102 mmol/L Normal 98-107 [facility] Comment on above: Performed By: #### L IPID, CMP #### [facility] [address] [place] [address] Dr. Re Nieto CO2 [Moles/Vol] 27.3 mmol/L Normal 21.0-32.0 [facility] Comment on above: Performed By: #### L IPID, CMP #### [facility] [address] [place] [address] Dr. Re Nieto Creatinine [Mass/Vol] 0.83 mg/dL Normal 0.55-1.02 [facility] Comment on above: Performed By: #### L IPID, CMP #### [facility] [address] [place] [address] Dr. Re Nieto EGFR-AF RWANDAN >60 Normal >=60 [facility] Comment on above: Performed By: #### L IPID, CMP #### [facility] [address] [place] [address] Dr. Re Nieto EGFR-NON AF RWANDAN >60 Normal >=60 [facility] Comment on above: Performed By: #### L IPID, CMP #### [facility] [address] [place] [address] Dr. Re Nieto Globulin (S) [Mass/Vol] 3.3 g/dL Normal [facility] Comment on above: Performed By: #### L IPID, CMP #### [facility] [address] [address] [address] Re Nieto Glucose [Mass/Vol] 87 mg/dL Normal 74-106 [facility] Comment on above: Performed By: #### L IPID, CMP #### [facility] [address] [address] [address] Re Nieto Potassium [Moles/Vol] 4.0 mmol/L Normal 3.5-5.1 [facility] Comment on above: Performed By: #### L IPID, CMP #### [facility] [address] [place] [address] Dr. Re Nieto Protein [Mass/Vol] 7.6 g/dL Normal 6.4-8.2 [facility] Comment on above: Performed By: #### L IPID, CMP #### [facility] [address] [place] [address] Dr. Re Nieto Sodium [Moles/Vol] 138 mmol/L Normal 136-145 [facility] Comment on above: Performed By: #### L IPID, CMP #### [facility] [address] [address] [address] Re Nieto Urea nitrogen [Mass/Vol] 14.0 mg/dL Normal 7.0-18.0 [facility] Comment on above: Performed By: #### L IPID, CMP #### [facility] [address] [place] [address] Dr. Re Nieto Urea nitrogen/Creatinine [Mass ratio] 16.9 mg/mg Normal [facility] Comment on above: Performed By: #### L IPID, CMP #### [facility] [address] [place] [address] Dr. Re Nieto COVID-19 [facility] 04-08-2022 SARS-CoV-2 (COVID-19) RNA CARLEY+probe Ql (Unsp spec) Negative Normal Negative [facility] Comment on above: Order Comment: Healt hcare Worker?: N Result Comment: Testing for SARS-CoV-2 by RT-PCR This test was developed and its performance characteristics determined by [employer] and validated at the [facility]. This test has not been FDA cleared or approved. This test has been authorized by FDA under an Emergency Use Authorization (EUA). This test has been validated in accordance with the FDA's Guidance Document (Policy for Diagnostics Testing in Laboratories Certified to Perform High Complexity Testing under CLIA prior to Emergency Use Authorization for Coronavirus Disease-2019 during the Public Health Emergency) issued on December 28, 2019. This test is only authorized for the duration of time the declaration that circumstances exist justifying the authorization of the emergency use of in vitro diagnostic tests for detection of SARS-CoV-2 virus and/or diagnosis of COVID-19 infection under section 564(b)(1) of the Act, 21 U.S.C. 360bbb-3(b)(1), unless the authorization is terminated or revoked sooner. PERFORMED BY: [place] [id number] PATHOLOGIST [employer] OPERATOR JACKIE DAMON M.D. Performed By: #### C OVID 19 [facility] [place] #### [address] ECG 12 lead ECGon 03-25-2022 ECG 12 lead ECG [facility] [place] [address] [place] [address] Electrocardiograph Report Signed Patient: Milena Aquino MR#: [id number] 7 : 1965 Acct:[id number] Age/Sex: 56 / F ADM Date: 03/25/22 Loc: Room: Type: [facility] Attending Dr: Dale Gonzalez MD Ordering Provider: Dale Gonzalez MD Date of Service: 03/25/22 ECG/ECG 12 lead ECG: pre surgery Copies to: Test Reason : Blood Pressure : / mmHG Vent. Rate : 072 BPM Atrial Rate : 072 BPM P-R Int : 130 ms QRS Dur : 068 ms QT Int : 398 ms P-R-T Axes : 071 076 034 degrees QTc Int : 435 ms Sinus rhythm with premature atrial complexes Nonspecific ST abnormality Inferolateral leads Otherwise normal ECG When compared with ECG of 03-MAY-2018 08:38, premature atrial complexes are now present Confirmed by BK HER DO ([id number]) on 03/25/2022 5:38:26 PM Referred By: WM Electronically Signed By:BK HER DO Transcribed By: ZARINA Signed By Bk Her DO 03/25 5267 [facility] COVID-19 Antigenon 2 COVID-19 Antigen Healthcare Worker?: N Reference Range: Negative Negative results, from patients with symptom onset beyond five days, should be treated as presumptive and confirmation with a molecular assay, if necessary, for patient management, may be performed. Negative results do not rule out COVID-19 and should not be used as the sole basis for treatment or patient management decisions, including infection control decisions. Negative results should be considered in the context of a patient's recent exposures, history and the presence of clinical signs and symptoms consistent with COVID-19. The [employer] SARS Antigen ABA does not differentiate between SARS-CoV and SARS-CoV-2. This test was developed and its performance characteristic determined by [employer] and validated at [facility]. This test has not been FDA cleared or approved. This test has been authorized by FDA under an Emergency Use Authorization (EUA). This test has been validated in accordance with the FDA's Guidance Document (Policy for Diagnostics Testing in Laboratories Certified to Perform High Complexity Testing under CLIA prior to Emergency Use Authorization for Coronavirus Disease-2019 during the Public Health Emergency) issued on December 28, 2019. This test is only authorized for the duration of time the declaration that circumstances exist justifying the authorization of the emergency use of in vitro diagnostic tests for detection of SARS-CoV-2 virus and/or diagnosis of COVID-19 infection under section 564(b)(1) of the Act, 21 U.S.C. 360bbb-3(b)(1), unless the authorization is terminated or revoked sooner. SARS-CoV+SARS-CoV-2 (COVID-19) Ag [Presence] in Respiratory specimen by Rapid immunoassay Negative for SARS Antigen by ABA PERFORMED BY: [address] [place] [address] PATHOLOGIST LAYBOY OPERATOR JACKIE DAMON M.D. [facility] Comment on above: Performed By: #### C OVID-19 CIELO, SOFIANEG #### [facility] [address] Cielo Ag Negativeon 02-12-20 Cielo Ag Negative Negative Normal Negative [facility] Comment on above: Result Comment: This is a duplicate Cielo SARS Antigen (ABA) result to be used for statistical tracking purpose only. PERFORMED BY: [place] [address] PATHOLOGIST LAYBOY OPERATOR JACKIE DAMON M.D. Performed By: #### C OVID-19 CIELO, SOFIANEG #### [address] XR cerv spine AP/LAT/FLX/EXT on 12-11-2021 XR cerv spine AP/LAT/FLX/EXT [facility] [place] [address] [place] [address] XRay Report Signed Patient: Milena Aquino MR#: [id number] 7 : 1965 Acct:[id number] Age/Sex: 56 / F ADM Date: 12/11/21 Loc: [place] Room: Type: [facility] Attending Dr: Isaiah Barcenas MD Ordering Provider: Isaiah Barcenas MD Date of Service: 12/11/21 XR/XR cerv spine AP/LAT/FLX/EXT: PAIN Copies to: Isaiah Barcenas MD Cervical spine 12/11/2021. CLINICAL DATA: Neck pain. Cervical disc disorder. FINDINGS: 4 views of the cervical spine were obtained including lateral views in the neutral, flexion, and extension positions. There are postsurgical changes related to C5-C7 anterior and interbody fusion. The fusion hardware appears intact. There is loss of the normal cervical lordosis which could be related to muscle spasm or patient positioning. Vertebral alignment is normal and remains intact with flexion and extension. Mild disc space narrowing and discovertebral degenerative changes are identified at C4-C5. Facet arthritis is seen in the lower cervical spine. No prevertebral soft tissue swelling is noted. XR/XR cerv spine AP/LAT/FLX/EXT IMPRESSION: Postsurgical changes. Loss of the normal lordosis. Normal vertebral alignment and no instability with flexion or extension. Disc space narrowing and degenerative changes. Impression dictated by: Freeman Roberts Jr., M.D.12/11/2021 4:23 PM Dictation Location: [facility]- Transcribed By: [facility] 12/11/211622 Dictated By: Freeman Roberts Jr, MD 12/11/211620 Signed By: 12/11/211622 Normal [facility] XR lumbar spine 6V w bending on 12-11-2021 XR lumbar spine 6V w bending [facility] [place] [address] [place] [address] XRay Report Signed Patient: Milena Aquino MR#: [id number] 7 : 1965 Acct:[id number] Age/Sex: 56 / F ADM Date: 12/11/21 Loc: [place] Room: Type: [facility] Attending Dr: Isaiah Barcenas MD Ordering Provider: Isaiah Barcenas MD Date of Service: 12/11/21 XR/XR lumbar spine 6V w bending: M48.062 Copies to: Isaiah Barcenas MD Lumbar spine 12/11/2021. CLINICAL DATA: Lumbar stenosis with neurogenic claudication. FINDINGS: 6 views of the lumbar spine were obtained including standing lateral views in the neutral, flexion, and extension positions and standing neutral, rightward bending, and leftward bending frontal views. There is lumbar spinal curvature with the apex to the left. There is also mild posterior malalignment of L3 on L4. Malalignment at this level lessens with flexion and there is development of mild anterior malalignment of L4 on L5 with flexion. Disc space narrowing and discovertebral degenerative changes are identified, greatest at L3-L4 on the right. Facet arthritis is also seen. XR/XR lumbar spine 6V w bending IMPRESSION: Lumbar spinal curvature. Mild vertebral malalignment and mild instability with flexion. Disc space narrowing and degenerative changes Impression dictated by: Freeman Roberts Jr., M.D.12/11/2021 4:21 PM Dictation Location: [facility] Transcribed By: [facility] 12/11/211620 Dictated By: Freeman Roberts Jr, MD 12/11/21 1617 Signed By: 12/11/21 1621 [facility] [place] 11-14-2021 CNPN Telephone (SPNMAV) MILENA AQUINO ([id number]) 1965 F Date Time Provider Department 11/14/21 ESTRELLITA GUEVARA SPNMAV During your visit today, we recorded the following information about you: Eleanor Melquiades BOYLE 11/14/2021 7:18 AM Signed Please call pt and assist with scheduling spine intervention order from Dr Rodas Injection Type - Transforaminal Lumbar epidural steroid injection: Right; Level: L3-4 CPT 39418 Diagnosis: M54.16 +81mg ASA ok to take -DM Please review pre procedure instructions with pt Thank you Allergies As of Date: 11/14/2021 Noted Allergy Reaction CATS 09/19/2013 5 - Intolerance Date Reviewed: 11/13/2021 Reviewed by: Myesha Amezcua Ma - Fully Assessed Reason for Visit: Injections [199] Prescriptions as of 11/14/2021 - meloxicam (MOBIC) 15 mg tablet Take 15 mg by mouth once daily. - CALCIUM ORAL Take by mouth. - cholecalciferol, vitamin D3, (VITAMIN D3 ORAL) Take by mouth. - ibuprofen (MOTRIN) 800 mg tablet Take 800 mg by mouth every 12 hours as needed. - ALBUTEROL INHALATION Inhale as instructed. - MULTI-VITAMIN ORAL Take by mouth. - ASPIRIN (ASPIR-81 ORAL) Take by mouth. - [place]-3 Fatty Acids-Vitamin E (FISH OIL) 1,000 mg cap Take 1 capsule by mouth. - LUTEIN ORAL Take by mouth. - CALCIUM CARBONATE/VITAMIN D3 (VITAMIN D-3 ORAL) Take by mouth. - GLUC BURTON/CHONDR BURTON A NA/SODIUM (GLUCOSAMINE-CHONDROIT IN-SODIUM ORAL) Take by mouth. - melatonin 1 mg tab Take 10 mg by mouth daily at bedtime. Problem List As Of Date 11/14/2021 Noted Resolved Cervical disc herniation [M50.20] 08/31/2014 Encounter Status:Closed by ELEANOR WADDELL LPN on 11/14/21 [facility] CNOVon 11-13-2021 CNOV Office Visit (NSFRVW ) MILENA AQUINO ([id number]) 1965 F Date Time Provider Department 11/13/21 11:00 AM BERENICE RODAS NSFRVW During your visit today, we recorded the following information about you: Temperature Pulse Blood pressure Weight 98.3 degrees 82/minute 137/88 88.9 kg Height 1.651 m Berenice Rodas MD 11/13/2021 12:40 PM Signed SPINE SURGERY NEW PATIENT PCP: Tino Ramey DO REFERRING PROVIDER: Self SUBJECTIVE HISTORY OF PRESENT ILLNESS: Milena Aquino is a 55 year old female presenting alone. CHIEF COMPLAINT: Low back pain, RLE pain; LUE numbness PRECIPITATING EVENT: None DURATION OF SYMPTOMS: Greater Than 6 Months Ms. Aquino is a 55 year old female presenting today with complaints of low back pain with radiation to the right lower extremity. The pain is associated with numbness and weakness of the right lower extremity. She states her low back pain has been bothering her over the past six months. She saw her PCP who started her on Meloxicam. The pain is mitigated with rest. She has been off work and she is doing well with A combination of rest and Mobic. She reports cramping in the deltoids with activity and reaching overhead. She gets cramping in the shoulder with planking. She has numbness in the left fourth and fifth digits. She is dropping objects frequently with her left hand. 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 She has additionally been treated by a Chiropractor, as well as acupuncture and Meloxicam. She had a previous C5-[address] [place] [address] Edson Shah. Prior to her cervical surgery she was having significant pain and weakness in the left upper extremity, particularly through the triceps. She has some difficulty with her left hand currently. She states Dr. Shah wanted to do three levels, but she got a second opinion with Dr. Porter who recommended doing two levels. She has no health problems. She would prefer to go back to work with a 20 lb weight restriction. PAIN EVALUATION 11/13/2021 1100 Pain Level: 5 Pain Location: Neck-Posterior left shoulder to arm; lower back; right/left leg Description: Spasm;Cramping;Aching; Sore;Tingling;Numbness Duration Amount of Time: 6 Duration Units: Months Frequency: Continuous Intervention/Comfort measure: Medication Comments: pt presents with neck tightness that radiates into her left shoulder and down into her hand; increase in weakness and numbness/tingling in left arm; reports a lot of cramping; also reports lower back pain that extends bilaterally down her legs in the back; typically right is more affected than left; no numbness or tingling in legs; pain increase with any weight lifting over 20lbs; pt has done a lot of self directed physical therapy and has seen a chiropractor; pt states her pain is minimal but taken care of by meloxicam; prefers to use a hand rail while using stairs; AMBULATORY STATUS: Independent Community Distances ANTIPLATELET OR ANTICOAGULATION STATUS: No PREVIOUS CONSERVATIVE TREATMENTS: Ibuprofen 800 mg q12h prn 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 No past surgical history on file. No family history on file. Social History Tobacco Use - Smoking status: Never Smoker - Smokeless tobacco: Not on file Substance Use Topics - Alcohol use: Not on file - Drug use: Not on file ALLERGIES Allergen Reactions - Cats Intolerance MEDICATIONS: ibuprofen (MOTRIN) 800 mg tablet Take 800 mg by mouth every 12 hours as needed. ALBUTEROL INHALATION Inhale as instructed. MULTI-VITAMIN ORAL Take by mouth. ASPIRIN (ASPIR-81 ORAL) Take by mouth. [place]-3 Fatty Acids-Vitamin E (FISH OIL) 1,000 mg cap Take 1 capsule by mouth. LUTEIN ORAL Take by mouth. CALCIUM CARBONATE/VITAMIN D3 (VITAMIN D-3 ORAL) Take by mouth. GLUC BURTON/CHONDR BURTON A NA/SODIUM (GLUCOSAMINE-CHONDROIT IN-SODIUM ORAL) Take by mouth. melatonin 1 mg tab Take 1 mg by mouth daily at bedtime. REVIEW OF SYSTEMS: PAIN ASSESSMENT: See HPI. GENERAL: Denies fever, chills malaise and weight loss. HEENT: No recent change in vision or hearing. CARDIOVASCULAR: Denies chest pain, history of A-fib, valvular disease, or pacemaker/ICD. RESPIRATORY: Denies SOB, sputum production, and hemoptysis. GI: Denies GI ulcers, inflammatory disease, or liver disease. : Denies change in frequency or urgency, kidney disease, and burning with urination. MUSCULOSKELETAL: Back pain SKIN: Denies rash or itching. PSYCHOLOGICAL: Denies uncontrolled depression or anxiety. NEURO: Denies CVA, seizures, headaches. ENDOCRINE: Denies diabetes, thyroid disease. HEMATOLOGY/LYMPHOLOGY: Denies cancer, bleeding or clotting disorders, anemia,a (more content not included)... [facility] 11-13-2021 [facility] Telephone (SPNMAV) MILENA AQUINO ([id number]) 1965 F Date Time Provider Department 11/13/21 [facility] During your visit today, we recorded the following information about you: Sarah Salazar MA 11/13/2021 12:01 PM Signed Please contact patient and assist in scheduling the following injection per spine intervention order: TFESI Right L3-4 Diagnosis: M54.16 -DM -thinners Please give patient pre-injection instructions. Thank you. Candido Nava 11/13/2021 12:20 PM Signed Scheduled 12/18 @ 8:40am. Candido Nava 11/13/2021 12:20 PM Signed Addended by: CANDIDO NAVA on: 11/13/2021 12:20 PM Modules accepted: Orders Allergies As of Date: 11/13/2021 Noted Allergy Reaction CATS 09/19/2013 5 - Intolerance Date Reviewed: 11/13/2021 Reviewed by: Myesha Amezcua Ma - Fully Assessed Reason for Visit: Schedule Injection [3498] Primary Visit Diagnosis:Lumbar radiculopathy [M54.16] Order(s):SURGICAL REQUEST - ELECTIVE (04/2020) [[id number]] Order #: [id number]: 1 Prescriptions as of 11/13/2021 - meloxicam (MOBIC) 15 mg tablet Take 15 mg by mouth once daily. - CALCIUM ORAL Take by mouth. - cholecalciferol, vitamin D3, (VITAMIN D3 ORAL) Take by mouth. - ibuprofen (MOTRIN) 800 mg tablet Take 800 mg by mouth every 12 hours as needed. - ALBUTEROL INHALATION Inhale as instructed. - MULTI-VITAMIN ORAL Take by mouth. - ASPIRIN (ASPIR-81 ORAL) Take by mouth. - [place]-3 Fatty Acids-Vitamin E (FISH OIL) 1,000 mg cap Take 1 capsule by mouth. - LUTEIN ORAL Take by mouth. - CALCIUM CARBONATE/VITAMIN D3 (VITAMIN D-3 ORAL) Take by mouth. - GLUC BURTON/CHONDR BURTON A NA/SODIUM (GLUCOSAMINE-CHONDROIT IN-SODIUM ORAL) Take by mouth. - melatonin 1 mg tab Take 10 mg by mouth daily at bedtime. Problem List As Of Date 11/13/2021 Noted Resolved Cervical disc herniation [M50.20] 08/31/2014 Encounter Status:Closed by SARAH SALAZAR on 11/13/[address] [facility] MRI [facility] CONon 11-03-19 MRI [facility] CON EXAMINATION: MRI [facility] CON HISTORY: Radiculopathy due to cervical spondylosis COMPARISON: No relevant comparison available. TECHNIQUE: A variety of imaging planes and parameters were utilized for visualization of suspected pathology. FINDINGS: CRANIOCERVICAL AREA: Normal foramen magnum with no Chiari malformation. PARASPINAL AREA: Normal with no visible mass. BONES: Normal alignment with no acute fracture, spondylolisthesis or bone edema. Anterior fusion C5-C7 with resultant metallic susceptibility artifact. CORD: Normal caliber, contour, and signal intensity. CERVICAL DISC LEVELS: C2-C3: No significant disc/facet abnormality, spinal stenosis, or foraminal stenosis. C3-C4: No significant disc/facet abnormality, spinal stenosis, or foraminal stenosis. C4-C5: Disc desiccation. Mild to moderate diffuse disc/osteophyte complex most significant along the left neural foramen, axial image 13. No central canal or right foraminal stenosis. Mild to moderate left foraminal stenosis. C5-C6: Anterior fusion. No disc bulge or herniation. No central or foraminal stenosis C6-C7: Anterior fusion. No disc bulge or herniation. No central or foraminal stenosis C7-T1:. Disc desiccation. Mild disc bulge. No central or foraminal stenosis. IMPRESSION: Anterior fusion C5-C7 Degenerative changes most significant at C4-C5 where mild to moderate left foraminal stenosis is observed Electronically authenticated by: JEROD KENNEDY Date: 2021-11-03 14:34 Normal [facility] MRI [facility] WO CONon 11-03-19 22 MRI [facility] WO CON EXAMINATION: MRI [facility] CON HISTORY: Lumbosacral spondylosis with radiculopathy COMPARISON: No relevant comparison available. TECHNIQUE: A variety of imaging planes and parameters were utilized for visualization of suspected pathology. FINDINGS: For the purposes of numbering, sagittal T2 image # 8 extends from the T11 vertebral body superiorly to the S2-S3 level inferiorly. PARASPINAL AREA: Normal with no visible mass. BONES: Rotatory levocurvature centered at L3. Moderate degenerative changes. Signal changes lower endplate L3 upper endplate of L4, I suspect Modic type I changes with some bone marrow edema seen on STIR sequence CORD/CAUDA EQUINA: Normal caliber, contour, and signal intensity. DISC LEVELS: 12-L1: Posterior disc bulge measuring 2 mm. No central or foraminal stenosis L1-L2: Disc desiccation. Mild diffuse disc bulge. Moderate ligamentum flavum hypertrophy and facet osteoarthropathy. No central or foraminal stenosis. L2-L3: Moderate disc space narrowing and disc desiccation. Posterior broad-based disc protrusion extending up to 2.2 mm. Ligamentum flavum hypertrophy. No central or foraminal stenosis. L3-L4: Severe right and moderate left disc space narrowing with disc desiccation and endplate sclerosis. Moderate diffuse degenerative spondylosis. Posterior broad-based disc herniation the protrusion type most significant along the right neural foramen sagittal image 11. There is moderate trefoil narrowing of the central canal, axial image 14. Moderate right and no left foraminal stenosis L4-L5: No significant disc/facet abnormality, spinal stenosis, or foraminal stenosis. L5-S1: No significant disc/facet abnormality, spinal stenosis, or foraminal stenosis. IMPRESSION: Moderate diffuse degenerative changes most significant at L3-L4 where there is moderate central canal stenosis, and moderate right foraminal stenosis Electronically authenticated by: JEROD KENNEDY Date: 2021-11-03 14:26 Normal [facility] XR TSPINE 2 VIEWSon 11-03-19 22 XR TSPINE 2 VIEWS EXAMINATION: XR TSPI NE 2 VIEWS HISTORY: Pain in thoracic spine COMPARISON: No relevant comparison available. FINDINGS: BONES: Normal alignment of the thoracic vertebral bodies with no acute fracture or spondylolisthesis. Mild degenerative changes. Cervical fusion hardware. DISC SPACES: Normal. No significant disc height narrowing, subluxation, or endplate abnormality. PARASPINOUS: Negative. No paraspinous abnormality is seen. OTHER: Negative. IMPRESSION: Degenerative spondylosis Electronically authenticated by: JEROD KENNEDY Date: 2021-11-03 14:45 Normal [facility] Vital Signs Date Time Vital Sign Value Performing Clinician Facility 12-02-2022 14:15-0500 Body weight 80.74 kg Chidi Kwong Other [facility] Other 12-02-2022 14:15-0500 Diastolic blood pressure 80 mm[Hg] Chidi Kwong Other [facility] Other 12-02-2022 14:15-0500 SaO2% (BldA) [Mass fraction] 97 % Chidi Kwong Other [facility] Other 12-02-2022 14:15-0500 Systolic blood pressure 116 mm[Hg] Chidi Kwong Other [facility] Other 11-10-2022 09:45-0500 Body weight 80.38 kg Chidi Kwong Other [facility] Other 11-10-2022 09:45-0500 Diastolic blood pressure 60 mm[Hg] Chidi Kwong Other [facility] Other 11-10-2022 09:45-0500 SaO2% (BldA) [Mass fraction] 98 % Chidi Willardky Other [facility] Other 11-10-2022 09:45-0500 Systolic blood pressure 100 mm[Hg] Chidi Varghese Other [facility] Other 10-27-2022 10:48-0500 Body temperature 97.88 [degF] Juan Archibalde [facility] 10-27-2022 10:48-0500 Diastolic blood pressure 82 mm[Hg] Juan Maddox [facility] 10-27-2022 10:48-0500 Heart rate 69 /min Juan Archibalde [facility] 10-27-2022 10:48-0500 Respiratory rate 20 /min Juan Maddox [facility] 10-27-2022 10:48-0500 SaO2% (BldA) [Mass fraction] 100 % Juan Maddox [facility] 10-27-2022 10:48-0500 Systolic blood pressure 130 mm[Hg] Juan Maddox [facility] 05-29-2022 11:45-0400 Body weight 85.73 kg Chidi Willardky Other [facility] Other 05-29-2022 11:45-0400 Diastolic blood pressure 60 mm[Hg] Chidi Varghese Other [facility] Other 05-29-2022 11:45-0400 Systolic blood pressure 102 mm[Hg] Chidi Kwong Other [facility] Other 03-03-2022 12:40-0400 Body weight 91.63 kg Isaiah Barcenas Other [facility] Other 02-05-2022 16:15-0400 Body weight 90.72 kg Chidi Kwong Other [facility] Other 02-05-2022 16:15-0400 Diastolic blood pressure 70 mm[Hg] Chidi Kwong Other [facility] Other 02-05-2022 16:15-0400 SaO2% (BldA) [Mass fraction] 97 % Chidi Kwong Other [facility] Other 02-05-2022 16:15-0400 Systolic blood pressure 120 mm[Hg] Chidi Kwong Other [facility] Other 01-12-2022 16:00-0400 Body weight 91.17 kg Chidi Kwong Other [facility] Other 01-12-2022 16:00-0400 Diastolic blood pressure 72 mm[Hg] Chidi Kwong Other [facility] Other 01-12-2022 16:00-0400 Systolic blood pressure 130 mm[Hg] Chidi Kwong Other [facility] Other 01-01-2022 10:40-0400 Body weight 90.72 kg Isaiah Barcenas Other [facility] Other 12-30-2021 14:15-0400 Body weight 90.72 kg Jerod Hykes Other [facility] Other Encounters Encounter Date Encounter Type Care Provider Facility Start: 08-29-2023 End: 08-29-2023 ambulatory Tino Ramey Other [facility] Other Start: 08-29-2023 Telephone encounter Tino Ramey [facility] Start: 12-02-2022 End: 12-02-2022 ambulatory Chidi Varghese Other [facility] Other Start: 12-02-2022 Office outpatient vi sit 15 minutes Chidi Varghese [facility] Start: 11-23-2022 End: 11-23-2022 ambulatory Chidi Varghese Other [facility] Other Start: 11-23-2022 Telephone encounter Chidi Varghese [facility] Start: 11-10-2022 End: 11-10-2022 ambulatory Chidi Varghese Other [facility] Other Start: 11-10-2022 Office outpatient vi sit 25 minutes Chidi Varghese [facility] Start: 10-27-2022 End: 10-27-2022 Emergency department patient visit Juan Maddox Facility:[facility] Start: 10-27-2022 End: 10-27-2022 Emergency department patient visit Juan Maddox [facility] Start: 08-29-2022 Encounter for genera l adult medical examination without abnormal findings DR TINO RAMEY [facility] Start: 08-26-2022 End: 08-27-[address] TINO RAMEY Facility:[facility] Start: 08-26-2022 End: 08-27-2022 Encounter for general adult medical examination without abnormal findings DR TINO RAMEY Facility:[facility] Start: 08-19-2022 Adult health examination Tino Ramey Other [facility] Other Start: 05-29-2022 End: 05-29-2022 ambulatory Chidi Varghese Other [facility] [employer] Other Start: 05-29-2022 Office outpatient vi sit 25 minutes Chidi Varghese [facility] Start: 05-21-2022 (Procedure) Short Chidi Kwong [facility] Start: 05-21-2022 End: 05-21-2022 ambulatory Chidi Varghese Other [facility] Other Start: 04-09-2022 End: 04-09-2022 ambulatory Tino Ball Facility:[facility] Start: 04-08-2022 End: 04-08-2022 ambulatory Tino Ball Facility:[facility] Start: 03-25-2022 End: 03-25-2022 ambulatory Tino Ball Facility:[facility] Start: 03-03-2022 End: 03-03-2022 ambulatory Isaiah Barcenas Other [facility] Other Start: 03-03-2022 Office outpatient vi sit 15 minutes Isaiah Barcenas [facility] Start: 02-13-2022 End: 02-13-2022 ambulatory Tino Ball Facility:[facility] Start: 02-11-2022 End: 02-11-2022 ambulatory Jerod Cartagena Cesia Facility:[facility] Start: 02-05-2022 End: 02-05-2022 ambulatory Chidirobby Kwong Other [facility] Other Start: 02-05-2022 Office outpatient vi sit 15 minutes Chidi Avrghese [facility] Start: 01-27-2022 (Procedure) Short Chidi Kwong [facility] Start: 01-27-2022 End: 01-27-2022 ambulatory Chidi Varghese Other [facility] Other Start: 01-13-2022 End: 01-13-2022 ambulatory Chidi Varghese Other [facility] Other Start: 01-13-2022 Telephone encounter Chidi Kwong [facility] Start: 01-12-2022 End: 01-12-2022 ambulatory Chidi Kwong Other [facility] Other Start: 01-12-2022 Office consultation new/estab patient 60 min Chidi Varghese [facility] Start: 01-01-2022 End: 01-01-2022 ambulatory Isaiah Barcenas Other [facility] Other Start: 01-01-2022 Office outpatient vi sit 25 minutes Isaiah Barcenas [facility] Start: 12-30-2021 End: 12-30-2021 ambulatory Jerod Callaway Other [facility] Other Start: 12-30-2021 Office outpatient ne w 45 minutes Jerod Callaway [facility] Start: 12-11-2021 End: 12-11-2021 ambulatory Isaiah Barcenas Facility:[facility] Start: 12-04-2021 End: 12-04-2021 ambulatory Isaiah Barcenas Other [facility] Other Start: 12-04-2021 Office outpatient ne w 45 minutes Isaiah Barcenas [facility] Start: 11-16-2021 End: 11-16-2021 Emergency department patient visit Tino Ramey Facility:[facility] Start: 11-03-2021 End: 11-04-[address] TINO RAMEY Facility:[facility] Procedures Date Procedure Procedure Detail Performing Clinician Cervical arthrodesis Juan sadler Comment on above: 2013 section Juan verma Comment on above: 2000 Depression screening Melissa Ramey Other Payers Date Payer Category Payer Unknown 2022 Worker's Compensation [id number] 2021 Self-pay 1964 Unknown [id number] 2.16.84 [id number] 1964 Unknown [id number] 2.16.84 [id number] 1964 Unknown [id number] 2.16.8 [id number] 1959 Unknown [id number] Unknown [id number] 2.16.8 [id number] Unknown [id number] 2.16.8 [id number] Unknown [id number] 2.16.8 [id number] Unknown [id number] 2.16.8 [id number] Unknown [id number] 2.16.8 [id number] Unknown [id number] 2.16.8 [id number] Unknown [id number] 2.16.8 [id number] Worker's Compensation [id number] Social History Date Type Detail Facility Sex Assigned At [facility] Start: 02-11-2021 Tobacco smoking status Never s moked tobacco (finding) [facility] Functional Status Date Assessment Result Facility 10-27-2022 Functional Status N/A [facility] Clinical Notes 10-08-2021 to 12-02-2022 Note Date & Type Note Facility 12-02-2022 Evaluation note Encounter Date Diagnosis Assessment Notes Nov, Lumbar radiculopathy (ICD-10 - M54.16) 56 year old female here for follow up status post right L3 and L4 transforaminal epidural steroid injection under fluoroscopic guidance. Patient reports 75-80% pain relief as well as improved walking, standing and daily functions following procedure. She voices complaints of intermittent low back pain with radiation into the buttock on the right side with increased activity. Anatomy of spine discussed in detail with patient in regards to patients condition. Overall, she appears to be doing very well and does not require further treatment at this time. I recommend she increase her activities as tolerated. She is counseled against any excessive bending or twisting. She is advised to call the office if her pain returns. 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 She was last seen 5 months ago. She voices complaints of low back pain with radiation down the posterior aspect of the bilateral lower extremities to the knees, worse on the right. She feels her pain is aggravated with walking and standing. Anatomy of spine as well as different treatment options were discussed in detail with patient in regards to patients condition. I recommend we proceed with a right L3 and L4 transforaminal epidural steroid injection under fluoroscopic guidance. Risks and benefits of procedure explained to patient; patient verbalizes understanding. Oct, Sacroiliitis (ICD-10 - M46.1) If her pain persists or worsens, we can consider SI joint injections in the future. Oct, Arthritis of lumbosacral spine (ICD-10 - M47.817) If her pain persists or worsens, we can consider lumbar facet MBB in the future. Oct, Other chronic pain (ICD-10 - G89.29) Patient is encouraged to call the office if her symptoms return [facility] Other 01-31-2023 Evaluation + Plan noteExtracted from: Title:ED Note Author:Beti ESTRADA, Jaskaran Corona te:10/27/22 Contusion, hip (S70.00XA: Co ntusion of unspecified hip, initial encounter) Elbow pain (M25.529: Pain in unspecified elbow) Fall (W19.XXXA: Unspecified fall, initial encounter) Orders: XR Elbow 3+ Views Left XR Hip 2-3 Views Left + Pelvis [facility]01-31-2023 Hospital Discharge instructions Patient Education 10/27/2022 11:47:38 Musculoskeletal Pain Musculoskeletal Pain Musculoskeletal pain refers to aches and pains in your bones, joints, muscles, and the tissues thatsurround them. This pain can occur in any part of the body. It can last for a short time (acute) ora long time (chronic). A physical exam, lab tests, and imaging studies may be done to find the cause of your musculoskeletal pain. Follow these instructions at home: Lifestyle Try to control or lower your stress levels. Stress increases muscle tension and can worsen musculoskeletal pain. It is important to recognize when you are anxious or stressed and learn ways to manageit. This may include: ?Meditation or yoga. ?Cognitive or behavioral therapy. ?Acupuncture or massage therapy. You may continue all activities unless the activities cause more pain. When the pain gets better, slowly resume your normal activities. Gradually increase the intensity and duration of your activities or exercise. Managing pain, stiffness, and swelling Take isgf-rjb-jrpnilb and prescription medicines only as told by your health care provider. When your pain is severe, bed rest may be helpful. Lie or sit in any position that is comfortable, but get out of bed and walk around at least every couple of hours. If directed, apply heat to the affected area as often as told by your health care provider. Use theheat source that your health care provider recommends, such as a moist heat pack or a heating pad. ?Place a towel between your skin and the heat source. ?Leave the heat on for 20 30 minutes. ?Remove the heat if your skin turns bright red. This is especially important if you are unable to feel pain, heat, or cold. You may have a greater risk of getting burned. If directed, put ice on the painful area. ?Put ice in a plastic bag. ?Place a towel between your skin and the bag. ?Leave the ice on for 20 minutes, 2 3 times a day. General instructions Your health care provider may recommend that you see a physical therapist. This person can help youcome up with a safe exercise program. Do any exercises as told by your physical therapist. Keep all follow-up visits, including any physical therapy visits, as told by your health care providers. This is important. Contact a health care provider if: Your pain gets worse. Medicines do not help ease your pain. You cannot use the part of your body that hurts, such as your arm, leg, or neck. You have trouble sleeping. You have trouble doing your normal activities. Get help right away if: You have a new injury and your pain is worse or different. You feel numb or you have tingling in the painful area. Summary Musculoskeletal pain refers to aches and pains in your bones, joints, muscles, and the tissues thatsurround them. This pain can occur in any part of the body. Your health care provider may recommend that you see a physical therapist. This person can help youcome up with a safe exercise program. Do any exercises as told by your physical therapist. Lower your stress level. Stress can worsen musculoskeletal pain. Ways to lower stress may include meditation, yoga, cognitive or behavioral therapy, acupuncture, and massage therapy. This information is not intended to replace advice given to you by your health care provider. Make sure you discuss any questions you have with your health care provider. Document Released: 09/13/2006 Document Revised: 08/26/2018 Document Reviewed: 10/13/2017 [employer] Patient Education 2020 [employer]. Follow Up Care 10/27/2022 10:47:33 With:[facility]: [facility] [phone] Address:Unknown When:10/30/2022 11:36:26 [facility]09-02-2022 Evaluation note* Encounter Date Diagnosis Assessment Notes Treatment Notes Treatment Clinical Notes May, Lumbar radiculopathy (ICD-10 - M54.16) 56 year old female here for follow up status post right L3 and L4 transforaminal epidural steroid injection under fluoroscopic guidance. Patient reports 100% relief of her lower extremity pain as well as improved walking, standing and daily functions following procedure. She voices complaints of right sided low back pain. She denies any procedure related complications. Overall, she appears to be doing well. I recommend she increase her activities as tolerated. She is counseled against any excessive bending or twisting. She is advised to call the office if her pain returns. May, Sacroiliitis (ICD-10 - M46.1) If her pain persists or worsens, we can consider SI joint injections in the future. May, Arthritis of lumbosacral spine (ICD-10 - M47.817) If her pain persists or worsens, we can consider lumbar facet MBB in the future. May, Other chronic pain (ICD-10 - G89.29) Patient is encouraged to call the office if her symptoms return [facility] Other 06-07-2022 Evaluation note* Encounter Date Diagnosis Assessment Notes Treatment Notes Treatment Clinical Notes Feb, Lumbar stenosis with neurogenic claudication (ICD-10 - M48.062) Since the last visit the patient has seen pain management and has significant improvement of buttock and leg pain. She is very happy with her progress at this point we talked about holding off on any surgical intervention and I will reevaluate the patient in 2 months. In addition I reviewed the EMG of the cervical spine showing findings that are chronic and of no clinical significance. Feb, Cervical disc disorder (ICD-10 - M50.90) [facility] Other 05-12-2022 Evaluation note* Encounter Date Diagnosis Assessment Notes Treatment Notes Treatment Clinical Notes January, Lumbar radiculopathy (ICD-10 - M54.16) 56 year old female here for follow up status post interlaminar epidural steroid injection at the L4-5 level under fluoroscopic guidance. Patient reports 100% relief of her lower extremity pain following the procedure. She complains of low back stiffness today. Different treatment options were discused in detail with the patient, overall she appears to be doing very well and does not require further treatment at this time. I recommend she increase her activities as tolerated. She is counseled against any excessive bending or twisting. She is advised to call the office if her pain returns. January, Arthritis of lumbosacral spine (ICD-10 - M47.817) If her pain persists or worsens, we can consider lumbar facet MBB in the future. January, Other chronic pain (ICD-10 - G89.29) Patient is encouraged to call the office if her symptoms return [facility] Other 04-18-2022 Evaluation note* Encounter Date Diagnosis Assessment Notes Treatment Notes Treatment Clinical Notes Dec, Lumbar radiculopathy (ICD-10 - M54.16) 56 year old female presents with complaints of pain down the posterior aspect of the bilateral lower extremities to the knees. She states pain has been present for 8 months and describes it as a dull ache. She notes pain is worse with prolonged standing. She has had some relief in the following physical therapy and continues physical therapy exercises at home. She notes minimal relief from Meloxicam. She feels pain can negatively impact her daily activities and sleeping pattern. Prior to examining the patient, office notes were reviewed from referring provider, Dr Barcenas. Pertinent imaging were reviewed and discussed in detail with the patient which showed scoliosis and multilevel degenerative changes, facet arthropathy as well as moderate canal stenosis at L3-4 and moderate spinal and right foraminal steosis at L3-4. Anatomy of spine as well as different treatment options were discussed in detail with patient in regards to patients condition. I recommend we proceed with a L4 and L5 lumbar epidural steroid injection under fluoroscopic guidance. Risks and benefits of procedure explained to patient; patient verbalizes understanding. Dec, Lumbar degenerative disc disease (ICD-10 - M51.36) Continue with current treatment plan. Dec, Arthritis of lumbosacral spine (ICD-10 - M47.817) If her pain persists or worsens, we can consider lumbar facet MBB in the future. Dec, Other chronic pain (ICD-10 - G89.29) Continue physical therapy exercises as discussed Dec, Other Medical deci justino making shows a new problem to me with further workup planned or suggested with the potential for extensive treatment options that were considered with the most applicable given this patient's situation as noted above. Treatment options considered include a combination of physical therapy approaches, pharmacologic management, and interventional procedures. Those most applicable to the patient were discussed at this time. Risk of complications and/or morbidity and mortality is high given that acute and chronic pain poses a threat to life and bodily function if undertreated, poorly treated or with failure to maintain adequate treatment and timely followup. Given the serious and fluctuating nature of pain with extensive consideration for whenever pain changes, there always remains the possibility of prolonged functional impairment requiring constant patient reassessment and high-level medical decision making. The amount and complexity of data reviewed is high given that patient labs, radiology reports, and other test were obtained, reviewed and summarized as applicable from the physician portal and/or outside medical records. Pertinent positive and negative findings were considered in medical decision-making. [facility] Other 04-07-2022 Evaluation note* Encounter Date Diagnosis Assessment Notes Treatment Notes Treatment Clinical Notes Dec, Lumbar stenosis with neurogenic claudication (ICD-10 - M48.062) The patient symptoms have changed very little. She has yet to see pain management she is having difficulty seeing her pain management doctor in [place] and she would like to have a doctor out here; I am sending a referral for her across the nav[place] to Dr. Kwong. I independently reviewed her MRI. She has spinal stenosis at L3-4, moderate stenosis at L4-5 and malalignment at L2-3 L3-4 and L4-5. She has a ulnar neuropathy type problem but I yet have to see her EMG. She will try to bring the EMG with her the next visit. I independently reviewed the dynamic back x-ray showing translation at L3-4 with overall malalignment and kyphoscoliotic changes at L2-3 L3-4 L4-5. I think neurogenic claudication is her biggest issue. I reviewed the dynamic neck x-ray which actually looks quite good with no instability. I also independently reviewed her DEXA scan which shows overall good bone quality for age. I will see the patient again in 2 months after her visits with pain management. Dec, Ulnar neuropathy at elbow of left upper extremity (ICD-10 - G56.22) Dec, Cervical disc disorder (ICD-10 - M50.90) Dec, Asymptomatic age-related postmenopausal state (ICD-10 - Z78.0) Dec, Other She has been wo rking with restrictions and feels she is able to return to full duty now. She was given a slip for work. [facility] Other 04-05-2022 Evaluation note* Encounter Date Diagnosis Assessment Notes Treatment Notes Treatment Clinical Notes Dec, Anal fissure (ICD-10 - K60.2) Dec, Hemorrhoids (ICD-10 - K64.9) HAS HAD THIS FROM CHILDBIRTH PROCEED WITH COLONOSCOPY MEDICATION ORDERED AT THIS TIME. Dec, Blood in stool (ICD-10 - K92.1) DOES NOTICE IN THE STOOLS. [facility] Other 03-10-2022 NoteHNO ID: [id number] Author: Zari Hernandez MD Service: ? Author Type: Physician Type: Progress Notes Filed: 12/04/2021 1:47 PM Note Text: UNIVERSAL PROTOCOL / SAFETY CHECKLIST Procedure to be Performed: EMG Sign In: A Moment of CARE was completed. Personnel directly involved with the procedure wore the appropriate PPE (Personal Protective Equipment). Patient/Surrogate Stated/Verified: PATIENT VERIFIED(optional for EMERGENT procedures): Patient name, Date of , Relevant allergies and The intended procedure Time Out Communication: Intended patient and procedure match the source documents. Correct side/site marked and visible. Sign Out: SIGN OUT (optional for EMERGENT procedures): Post-procedure follow-up management communicated and Plan of Care Visit completed when applicable. Raghavendra Browne EMG Zari Hernandez, [facility]03-10-2022 Evaluation note* Encounter Date Diagnosis Assessment Notes Treatment Notes Treatment Clinical Notes Nov, Lumbar stenosis with neurogenic claudication (ICD-10 - M48.062) I have independently reviewed the MRI of the cervical spine and the report an MRI of the lumbar spine and report and plain x-ray of the thoracic spine. Patient thoracic spine is essentially unremarkable for age. Her cervical spine shows adjacent disc bulging at C4-5 and C7-T1 with a left foraminal narrowing at C4-5 and foramen at C7-T1 adequate. The patient has numbness of her left little finger this may be an ulnar neuropathy she is forwarding an EMG to us for review. In addition she is having neurogenic claudication that is mild to moderate in degree. She is functional but cannot do a large amount of activity. Amazing she can lift 80 pounds at 56 years old and does therapy practice. The patient is already scheduled for pain management I think it is a good idea to proceed. I have ordered a 6 view lumbar spine x-ray a dynamic cervical x-ray and will review the EMG with the patient at the end of December. Nov, Ulnar neuropathy at elbow of left upper extremity (ICD-10 - G56.22) Nov, Cervical disc disorder (ICD-10 - M50.90) Nov, Asymptomatic age-related postmenopausal state (ICD-10 - Z78.0) [facility] Other 02-17-2022 NoteHNO ID: [id number] Author: Berenice Rodas MD Service: ? Author Type: Physician Type: Progress Notes Filed: 11/13/2021 12:40 PM Note Text: SPINE SURGERY NEW PATIENT PCP: Tino Ramey DO REFERRING PROVIDER: Self SUBJECTIVE HISTORY OF PRESENT ILLNESS: Milena Aquino is a 55 year old female presenting alone. CHIEF COMPLAINT: Low back pain, RLE pain; LUE numbness PRECIPITATING EVENT: None DURATION OF SYMPTOMS: Greater Than 6 Months Ms. Aquino is a 55 year old female presenting today with complaints of low back pain with radiation to the right lower extremity. The pain is associated with numbness and weakness of the right lower extremity. She states her low back pain has been bothering her over the past six months. She saw her PCP who started her on Meloxicam. The pain is mitigated with rest. She has been off work and she is doing well with A combination of rest and Mobic. She reports cramping in the deltoids with activity and reaching overhead. She gets cramping in the shoulder with planking. She has numbness in the left fourth and fifth digits. She is dropping objects frequently with her left hand. 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 She has additionally been treated by a Chiropractor, as well as acupuncture and Meloxicam. She had a previous C5-[address] [place] [address] Edson Shah. Prior to her cervical surgery she was having significant pain and weakness in the left upper extremity, particularly through the triceps. She has some difficulty with her left hand currently. She states Dr. Shah wanted to do three levels, but she got a second opinion with Dr. Porter who recommended doing two levels. She has no health problems. She would prefer to go back to work with a 20 lb weight restriction. PAIN EVALUATION 11/13/2021 1100 Pain Level: 5 Pain Location: Neck-Posterior left shoulder to arm; lower back; right/left leg Description: Spasm;Cramping;Aching;Sore;Tingling;Numbness Duration Amount of Time: 6 Duration Units: Months Frequency: Continuous Intervention/Comfort measure: Medication Comments: pt presents with neck tightness that radiates into her left shoulder and down into her hand; increase in weakness and numbness/tingling in left arm; reports a lot of cramping; also reports lower back pain that extends bilaterally down her legs in the back; typically right is more affected than left; no numbness or tingling in legs; pain increase with any weight lifting over 20lbs; pt has done a lot of self directed physical therapy and has seen a chiropractor; pt states her pain is minimal but taken care of by meloxicam; prefers to use a hand rail while using stairs; AMBULATORY STATUS: Independent Community Distances ANTIPLATELET OR ANTICOAGULATION STATUS: No PREVIOUS CONSERVATIVE TREATMENTS: Ibuprofen 800 mg q12h prn 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 No past surgical history on file. No family history on file. Social History Tobacco Use - Smoking status: Never Smoker - Smokeless tobacco: Not on file Substance Use Topics - Alcohol use: Not on file - Drug use: Not on file ALLERGIES Allergen Reactions - Cats Intolerance MEDICATIONS: ibuprofen (MOTRIN) 800 mg tablet Take 800 mg by mouth every 12 hours as needed. ALBUTEROL INHALATION Inhale as instructed. MULTI-VITAMIN ORAL Take by mouth. ASPIRIN (ASPIR-81 ORAL) Take by mouth. [place]-3 Fatty Acids-Vitamin E (FISH OIL) 1,000 mg cap Take 1 capsule by mouth. LUTEIN ORAL Take by mouth. CALCIUM CARBONATE/VITAMIN D3 (VITAMIN D-3 ORAL) Take by mouth. GLUC BURTON/CHONDR BURTON A NA/SODIUM (AHNRTJOPVTK-UKZVQFNIEND-YEQDVN ORAL) Take by mouth. melatonin 1 mg tab Take 1 mg by mouth daily at bedtime. REVIEW OF SYSTEMS: PAIN ASSESSMENT: See HPI. GENERAL: Denies fever, chills malaise and weight loss. HEENT: No recent change in vision or hearing. CARDIOVASCULAR: Denies chest pain, history of A-fib, valvular disease, or pacemaker/ICD. RESPIRATORY: Denies SOB, sputum production, and hemoptysis. GI: Denies GI ulcers, inflammatory disease, or liver disease. : Denies change in frequency or urgency, kidney disease, and burning with urination. MUSCULOSKELETAL: Back pain SKIN: Denies rash or itching. PSYCHOLOGICAL: Denies uncontrolled depression or anxiety. NEURO: Denies CVA, seizures, headaches. ENDOCRINE: Denies diabetes, thyroid disease. HEMATOLOGY/LYMPHOLOGY: Denies cancer, bleeding or clotting disorders, anemia,and DVT's. ALLERGIC/IMMUNOLOGICAL: Denies risks for infection, or recent MRSA infections. Patient Entered Questionnaires Spine Questions 11/12/2021 Pain Location: Leg Pain Duration: 3-6 months Pain over last 6 months: Every day or nearly every day in the past 6 months (more content not included)...[facility] [id number] NoteHNO ID: [id number] Author: Jerod Dukes PA-C Service: ? Author Type: Physician Monument Erector Type: Progress Notes Filed: 10/09/2021 4:45 PM Note Text: Pt can be seen first available with Dr. Rodas 2nd surgical opinion. [facility] NoteHNO ID: [id number] Author: Flor Gimenez Service: ? Author Type: ? Type: Progress Notes Filed: 10/09/2021 4:45 PM Note Text: Patient name: Milena Aquino Are you being referred by a [place] for Spine Health Provider or Pain Management Provider at [facility]? Yes If answer is YES please schedule directly with surgeon, triage does not need to be completed. Is this a self-referral Yes If not, who is the Referring Provider N/A Is this a 2nd opinion, have you been offered surgery by another surgeon? Yes MRI/CT/myelogram within 12 months? No If NO , please refer to medical spine or PCP to complete above imaging, triage does not need to be completed If YES,? please ask for the name/address of the facility where the MRI/CT/myelogram was completed: [place] [address] MRI/CT/myelogram viewable in [facility]: No If not, please provide [phone] to fax in imaging reports for review. Also, please inform patient to hand carry imaging disc to appointment. XR (spine) within 12 months: No If YES,? please ask for the name/address of the facility where the XR was completed: N/A Requested provider (First and Last name): Dr. Berenice Amps Are you interested in a virtual visit if offered? Yes 1. Where are you having symptoms related to this visit? Lumbar spine, R leg, hurts to walk or put weight on R side Back pain Yes Leg pain Yes Arm pain No Neck pain No 2. Are you having any of the following symptoms: Difficulty walking Yes Numbness Yes R leg Weakness Yes R leg Trouble using your hands? No 3. Have you had any injections or physical therapy in the last 12 months? 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 (For example: NSAIDS, muscle relaxants, analgesics, oral steroids, Chiropractor, Acupuncture): Chiropractor, acupuncture, Meloxicam 4. Are you currently taking daily prescribed narcotic medications for your current symptoms (For example Oxycodone, Hydrocodone, Tramadol, Morphine, Other)? No 5. Have you had previous spinal surgery for this same symptoms? Yes If YES? please ask for the name of facility/address of where the surgery was completed: [address] Edson Shah [address] [address] Additional Comments : [phone] [facility] noteNo InformationNort [employer] Other History general Narrative - Reported* Type Description Date Medical History Arthritis Surgical History cervical fusion-[facility] Hospitalization History See Above Next[facility] Other History general Narrative - Reported* Type Description Date Medical History Arthritis Surgical History cervical fusion-[facility] Surgical History C section 2000 Hospitalization History See Above Next[facility] Other History general Narrative - Reported* Type Description Date Medical History Arthritis Medical History hemorroids Surgical History cervical fusion-[facility] Surgical History C section 2000 Hospitalization History See Above Nextly Other History general Narrative - Reported* Type Description Date Medical History Arthritis Medical History hemorroids Surgical History cervical fusion-[facility] Surgical History C section 2000 Surgical History rectal surgery Hospitalization History See Above Next[facility] Other Hospital course Narrative No data available for this section [facility] No data available for this section [facility] HospitalReason for visit NarrativeReferral Dr. Vito Ramey Mid back pain down legsBethany [employer] Other Summary Purpose Family History No Family History Records FoundNo Family History Records FoundNo Family History Records FoundNo Family History Records FoundNo Family History Records Found Advance Directives No Advanced Directives Records FoundNo Advanced Directives Records FoundNo Advanced Directives Records FoundNo Advanced Directives Records FoundNo Advanced Directives Records Found Reason for Referral Reason *Waiting for appt Evaluate and Treat Back and Leg Pain Diagnosis 1 Lumbar stenosis with neurogenic claudication (M48.062) Referral Organization [facility] urosurgery Referring Provider First Name Isaiah Referring Provider Last Name Rosa Isela Referring Provider Specialty Neurologica l Surgery Referred Organization [facility] Pain Managemen t Referred Provider Chidi Kwong Referred Address [address] [place] [phone] Referred Provider Specialty Pain Medicin e Referral Priority Routine General Notes Julisa Freedman 022 11:05:03 AM >Received today and sent P2P Additional Source Comments INFORMATION SOURCE (unrecogn ized section and content) DATE CREATED AUTHOR 11/14/2021 [facility] DATE CREATED AUTHOR AUTHOR'S ORGANIZ ATION 12/15/[address] [facility] DATE CREATED AUTHOR AUTHOR'S ORGANIZ ATION 08/29/[address] [facility] DATE CREATED AUTHOR AUTHOR'S ORGANIZ ATION 10/30/2022 [facility] DATE CREATED AUTHOR AUTHOR'S ORGANIZ ATION 10/31/[address] [facility] REASON FOR VISIT (unrecogniz ed section and content) PT HERE FOR POSSIBLE FISSURE . PATIENT STATES THAT PAIN IS AT BASELINE AT THIS TIME AND SHE DOES HAVE HEMORRHOIDS., NO PREVIOUS COLONOSCOPYf/up Xrays and DEXA resultsREF BY DR ISAIAH BARCENAS FOR LUMBAR STENOSIS AND LEG PAINL4, L5 LUMBAR EPIDURAL STEROID INJPain Medicine Office NotesF/U AFTER PROCEDUREf/u Pain ManagementL3 AND L4 TRANSFORAMINAL EPIDURAL STEROID INJECTIONF/U AFTER L3 AND L4 LTRBILAT BACK PAIN RADIATING LLENo InformationF/U AFTER L3,4 LTR ON RIGHTNo Information Patient Care team informatio n (unrecognized section and content) Personnel Name: TINO RAMEY DO Address: Address: [address] [place], [place] [address] FOR RECORDS PERTAINING TO PATIENTS WHO ARE OR HAVE BEEN ENROLLED IN A CHEMICAL DEPENDENCY/SUBSTANCEABUSE PROGRAM, SOME INFORMATION MAY BE OMITTED. This clinical summary was aggregated from multiple sources. Caution should be exercised in using it in the provision of clinical care. This summary normalizes information from multiple sources, and as a consequence, information in this document may materially change the coding, format and clinical context of patient data. In addition, data may be omitted in some cases. CLINICAL DECISIONS SHOULD BE BASED ON THE PRIMARY CLINICAL RECORDS. [facility] [employer] provides no warranty or guarantee of the accuracy or completeness of information in this document.
--- NOTE | 2024-11-01 15:35 | XR_ITS ---
[address] [address] Patient Name: CHERELLE AQUINO MRN: [id number] date: 1965 Sex: F Assigned Patient Location: [facility] Current Patient Location: Accession/Order Number: [id number] Exam Date: 11/01/2024 15:41 Report Date: 11/02/2024 07:33 At the request of: JAMARI HOLLINS Procedure: XR shoulder RT min 2V EXAMINATION: XR AC joint BI, XR shoulder RT min 2V HISTORY: Right Shoulder Pain COMPARISON: No relevant comparison available. FINDINGS: RIGHT FINDINGS: BONES: No acute fracture or dislocation of the acromioclavicular joint or shoulder. Moderate acromioclavicular joint osteoarthritis. Calcific density cranial to the humeral head likely representing calcific tendinosis SOFT TISSUES: Negative. No visible soft tissue swelling. OTHER: Negative. LEFT FINDINGS: BONES: No acute fracture or dislocation. Mild acromioclavicular joint osteoarthritis SOFT TISSUES: Negative. No visible soft tissue swelling. OTHER: Negative. 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
--- NOTE | 2024-11-01 15:36 | XR_ITS ---
[address] [address] Patient Name: CHERELLE AQUINO MRN: [id number] date: 1965 Sex: F Assigned Patient Location: [facility] Current Patient Location: Accession/Order Number: [id number] Exam Date: 11/01/2024 15:41 Report Date: 11/02/2024 07:33 At the request of: JAMARI HOLLINS Procedure: XR AC joint BI EXAMINATION: XR AC joint BI, XR shoulder RT min 2V HISTORY: Right Shoulder Pain COMPARISON: No relevant comparison available. FINDINGS: RIGHT FINDINGS: BONES: No acute fracture or dislocation of the acromioclavicular joint or shoulder. Moderate acromioclavicular joint osteoarthritis. Calcific density cranial to the humeral head likely representing calcific tendinosis SOFT TISSUES: Negative. No visible soft tissue swelling. OTHER: Negative. LEFT FINDINGS: BONES: No acute fracture or dislocation. Mild acromioclavicular joint osteoarthritis SOFT TISSUES: Negative. No visible soft tissue swelling. OTHER: Negative. 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
== END 2024-11-01 14:57 | disposition home or self-care (01) ==
PROVIDERS: PCP Internal Medicine; Visit Provider Internal Medicine
DX: M25.511 Pain in right shoulder (principal); M19.012 Primary osteoarthritis, left shoulder; M19.011 Primary osteoarthritis, right shoulder
CPT/HCPCS: 73030; 73050

== ENCOUNTER 2025-08-01 11:42 | Outpatient (OUT) | payer OTHER, SELFPAY ==
--- OUTSIDE RECORDS SUMMARY | 2025-08-01 11:45 | XMS_ITS | Clinical Summary ---
Author Organization [facility] Address [address] [place], [place] [id number] Care Team Providers Care Conveyor Monitor Name Role Phone Tino Ramey Primary Care Provider [phone] Allergies Active AllergyReactionsCriticalityNoted MhkiOrxphhhbKesyLldlvkyvrja84/24/2013 Medications MedicationSigDispense QuantityRefillsLast FilledStart DateEnd DateStatus ALBUTEROL INHALATION Inhale as instructed.Active MULTI-VITAMIN ORAL Take by mouth.Active ASPIRIN (ASPIR-81 ORAL) Take by mouth.Active [place]-3 Fatty Acids-Vitamin E (FISH OIL) 1,000 mg cap Take 1 capsule by mouth.Active LUTEIN ORAL Take by mouth.Active CALCIUM CARBONATE/VITAMIN D3 (VITAMIN D-3 ORAL) Take by mouth.Active GLUC BURTON/CHONDR BURTON A NA/SODIUM (MMPEAYLEKYE-IVYFYKUWINP-JUEDMX ORAL) Take by mouth.Active melatonin 1 mg tab Take 10 mg by mouth daily at bedtime. Active ibuprofen (MOTRIN) 800 mg tablet Take 800 mg by mouth every 12 hours as needed.Active meloxicam (MOBIC) 15 mg tablet Take 15 mg by mouth once daily.Active CALCIUM ORAL Take by mouth.Active cholecalciferol, vitamin D3, (VITAMIN D3 ORAL) Take by mouth.Active Active Problems ProblemNoted DateDiagnosed DateCervical disc kebgvbwawv11/05/2014 Immunizations ImmunizationAdministration DatesNext Dueinfluenza vaccine, unspecified albahqugwuo39/13/2015tuberculin skin test (TST-PPD), purified protein derivative, ltjnezclbbt33/10/2010 Social History Tobacco UseTypesPacks/DayYears UsedDateSmoking Tobacco: NeverSmokeless Tobacco: NeverAlcohol UseStandard Drinks/WeekCommentsNot Asked0 (1 standard drink = 0.6 oz pure alcohol)PHQ-2AnswerDate RecordedPHQ-2 mpygf8692CommentsNo Sex and Gender InformationValueDate RecordedSex Assigned at BirthNot on file Legal VldLeqkac34/02/2012 8:55 AM ESTGender IdentityNot on fileSexual OrientationNot on file Last Filed Vital Signs Vital SignReadingTime TakenCommentsBlood Mxmriytw054/8811/13/2021 11:14 AM EST Fudvh604811/13/2021 11:14 AM HHJGihfpkuekdc88.8 ??C (98.3 ??F)11/13/2021 11:14 AM ESTRespiratory Rate--Oxygen Saturation--Inhaled Oxygen Concentration--Stbeur32.9 kg (196 lb)11/13/2021 11:14 AM ZAOQdcsje677.1 cm (5' 5 )11/13/2021 11:14 AM EST Body Mass Index32.62011/13/2021 11:14 AM EST Plan of Treatment DateTypeDepartmentCare Team (Latest Contact Info)Sqormqkudpc44/17/2025 10:45 AM ESTOffice Visit Orthopaedics [address] [place], [place] [phone] Kulwinder Navarro MD [address] [place], [place] [phone] Rt Shoulder outside images Request csiHealth MaintenanceDue DateLast Done CommentsAnxiety Yiejvebiq25/11/1983Depression Jmndwvlia23/11/1983HIV Screening 1982DTaP,Tdap,Td Vaccine (1 - Tdap)12/06/1983Cervical Cancer Screening 1985Mammogram Yioaenaek82/11/2005CT Uxmmbvprnwxg25/11/2010Cologuard (FIT-DNA)12/05/20095145Xdcomyryxke67/11/2010Colorectal Cancer Iggezhlbo27/11/2010 Fecal Occult Blood2009Lipid Hnsexgbso85/11/3005Uyblwhmpobcqt15/11/2010 Pneumococcal Vaccine: 50+ (1 of 1 - PCV)2014Shingrix Vaccine (1 of 2) 2014Diabetes Wwwfsnwpz95Covid-19 Vaccine (1 - 2024- season)2025Influenza Vaccine (#1)RSV Vaccine (1 - 1- dose 75+ series)12/06/2039Hepatitis C MlmoivmojWpnogfwhm28/24/2013 Procedures Procedure NamePriorityDate/TimeAssociated DiagnosisCommentsHEP REMOTE PANEL BL Lomhavi6109/19/2013 10:15 AM EST Pain in joint, hand Osteoarthritis, hand COMPREHENSIVE METABOLIC BPVPXRptrqhj76/24/2013 10:15 AM EST Pain in joint, hand from Last 3 Months or Most Recently Relevant to Health Maintenance Results * (ABNORMAL) HEP REMOTE PANEL BL (09/19/2013 10:15 AM EST)ComponentValueRef RangeTest MethodAnalysis TimePerformed AtPathologist SignatureHep B Core Ab, TotalNegativeNEGATCLEVELAND CLINIC MAIN LABORATORYHep C Antibody IANegative NEGATCLEVELAND CLINIC MAIN LABORATORYHBsAgNegativeNEGATCLEVELAND UNITED [facility]OSPITAL MAIN LABORATORYHep B Surface Ab, QualPositive(A)NEGATCLEVELAND UNITED HOSPITAL MAIN LABORATORYComment: These results are consistent with previous exposure and/or immunity to the hepatitis B virus antigen. Specimen (Source)Anatomical Location / LateralityCollection Method / Volume Collection TimeReceived TimeBlood specimen (specimen)BLOOD SPECIMEN / Unknown 09/19/2013 10:15 AM EST09/19/2013 10:17 AM EST Narrative Authorizing ProviderResult TypeResult StatusBeth Perla FELTONN.CNPLABORATORY EditedPerforming OrganizationAddressCity/State/ZIP CodePhone Number [facility] [address] [place] [address] * (ABNORMAL) COMP METABOLIC PANEL (09/19/2013 10:15 AM EST)ComponentValueRef RangeTest MethodAnalysis TimePerformed AtPathologist SignatureProtein, Total 7.86.0 - 8.4 g/dLUNIVERSITY HOSPITALS GENEV[facility] LABORATORYAlbumin4.93.5 - 5.0 g/dL [facility] LABORATORYCalcium9.88.5 - 10.5 mg/dLUNIVERSITY HOSPITALS GENEV[facility] LABORATORYBilirubin, Total0.30.0 - 1.5 mg/dLUNIVERSITY HOSPITALS GENEV[facility] LABORATORYAlkaline Dcgrkmfnoqi0428 - 150 U/[facility] ZRI722 - 40 U/[facility] QGUTQTXFCYOcaygpy7003 - 100 mg/dL [facility] FVQWFHLOIWKKF717 - 25 mg/dLUNIVERSITY HOSPITALS [facility] LABORATORYCreatinine0.790.70 - 1.40 mg/dLUNIVERSITY [facility]ALS [facility] Luoido798845 - 148 mmol/[facility] LABORATORYPotassium4.03.5 - 5.0 mmol/[facility] VBJSTWQXTQYboylupf63842 - 110 mmol/[facility] ABECTBGOXNOD064(L)23 - 32 mmol/[facility] Anion Kce478 - 15 mmol/[facility] MYILOJOPIXDRY761 - 45 U/L [facility] LABORATORYeGFR->60[facility] LABORATORYeGFR-All Other Races>60.[facility] LABORATORYComment: eGFR (Estimated GFR) Units of measure: mL/min/1.73 meters squared eGFR is derived from the reexpressed MDRD Study equation using the following parameters: serum creatinine, age, gender and race. The creatinine assay has been calibrated to be traceable to IDMS. An eGFR <60 mL/min/1.73m2 for >3 months is consistent with chronic kidney disease. Refer to KDOQI guidelines for clinical interpretation. Specimen (Source)Anatomical Location / LateralityCollection Method / Volume Collection TimeReceived TimeBlood specimen (specimen)BLOOD SPECIMEN / Unknown 09/19/2013 10:15 AM EST09/19/2013 10:17 AM EST Narrative Authorizing ProviderResult TypeResult StatusBeth Perla DE LA VEGACNPLABORATORY Final ResultPerforming OrganizationAddressCity/State/ZIP CodePhone Number [facility] [address] [place] [address] from Last 3 Months or Most Recently Relevant to Health Maintenance Insurance * Guarantor: Milena Aquino AAccount TypeRelation to PatientDate of BirthPhone Billing AddressPersonal/BtdhigZaoq40/[birth year]/[id number] [address] Care Teams Team MemberRelationshipSpecialtyStart DateEnd Date Tino Ramey DO [address] [place] [address] PCP - General01/05/01
--- OUTSIDE RECORDS SUMMARY | 2025-08-01 11:45 | XMS_ITS | Clinical Summary ---
Author Organization [facility] Address [address] [place] [address] Care Team Providers Care Cut Press Operator Name Role Phone Unavailable Primary Care Provider Unavailabl e Allergies Active AllergyReactionsCriticalityNoted DateCommentsInfluenza Rkovmhqv15/19/2023 Other Reaction(s): Unknown Medications MedicationSigDispense QuantityRefillsLast FilledStart DateEnd DateStatus meloxicam (Mobic) 15 MG tablet Take 15 mg by mouth in the morning.Active Family History Medical HistoryRelationNameCommentsBreast cancerMaternal GrandfatherProstate cancerPaternal GrandfatherRelationNameStatusCommentsFatherDeceasedMaternal GrandfatherDeceasedMaternal GrandmotherDeceasedMotherDeceasedPaternal GrandfatherDeceasedPaternal GrandmotherDeceased Social History Tobacco UseTypesPacks/DayYears UsedDateSmoking Tobacco: NeverSmokeless Tobacco: Never Tobacco Cessation:Counseling Given: Not Answered Alcohol UseStandard Drinks/WeekCommentsNever0 (1 standard drink = 0.6 oz pure alcohol)AUDIT-CAnswerDate RecordedQ1: How often do you have a drink containing alcohol?Never06/15/2023Q2: How many drinks containing alcohol do you have on a typical day when you are drinking?Patient does not drink06/15/2023Q3: How often do you have six or more drinks on one occasion?Never06/15/2023HQ-2AnswerDate RecordedPatient Health Questionnaire-2 Swsru985CommentsUnknown Sex and Gender InformationValueDate RecordedSex Assigned at BirthNot on file Legal AysGkannp95/15/2023 7:05 PM EDTGender IdentityNot on fileSexual OrientationNot on file Last Filed Vital Signs Vital SignReadingTime TakenCommentsBlood Yadpvbgz057/6009/ 12:00 PM EDT Pulse--Temperature--Respiratory Rate--Oxygen Saturation--Inhaled Oxygen Concentration--Cfkuql88.9 kg (185 lb)06/10/2022 12:00 PM UPRInwnut811.8 cm (5' 4.5 )06/10/2022 12:00 PM EDTBody Mass Index31.26006/10/2022 12:00 PM EDT Plan of Treatment Not on file
--- OUTSIDE RECORDS SUMMARY | 2025-08-01 11:51 | XMS_ITS | CCD ---
Author Organization [facility] Care Team Providers Care Gift Basket Packer Name Role Phone Shyla Barcenas Unavailable Jerod Callaway Unavailable Chidi Kwong Unavailable GUNJAN, DR KAUFFMAN Consulting Unavailable BALL, DR KAUFFMAN Primary Care Unavailable BALL, DR KAUFFMAN Admitting Unavailable BALL, DR KAUFFMAN Attending Unavailable BALL, DR KAUFFMAN Primary Care Unavailable BALL, DR KAUFFMAN Admitting Unavailable BALL, DR KAUFFMAN Attending Unavailable BALL, DR KAUFFMAN Consulting Unavailable BRENT, DR JEROD Griffin Consulting Unavailable TINO RAMEY Primary Care Physician Juan Maddox Attending Unavailable Gunjan, Tino Primary Care Unavailable GonzalezDale Attending Unavailable GonzalezDale Admitting Unavailable Gunjan, Tino Primary Care Unavailable Nawaf Berry Attending Unavailable Nawaf Berry Admitting Unavailable Jerod Callaway Attending Unavailable Jerod Callaway Admitting Unavailable Gunjan, Tino Primary Care Unavailable Shyla Barcenas Attending Unavailable Shyla Barcenas Admitting Unavailable Gunjan, Tino Primary Care Unavailable Gunjan, Tino Primary Care Unavailable Gonzalez, Dale Admitting Unavailable Gonzalez, aDle Attending Unavailable Gunjan, Tino Primary Care Unavailable GonzalezDale minor Admitting Unavailable GonzalezDale Attending Unavailable Gunjan, Tino Primary Care Unavailable Jerod Callaway Attending Unavailable Jerod Callaway Admitting Unavailable Tino Ramey Unavailable Tino Ramey DO Primary Care Provider Allergies Allergy ClassificationReported Allergen(s)Allergy TypeDate of OnsetReaction(s) Facility (1 source)No Known Medication Allergies; Translations: [No Known Medication Allergies]Propensity to adverse reactions (disorder)[facility] Repository (1 source)patient allergy list reviewed by nurse or physiciaPropensity to adverse kmnyvyiqr44-72-6835Bhjykzj:Hepa Wash Other (1 source)Amy to -[phone] Clinic Medications Current Medications MedicationDrug Class(es)DatesSig (Normalized)Sig (Original)Albuterol (1 source)beta2-Adrenergic AgonistALBUTEROL INHALATION Inhale as instructed. ActiveCalcium (1 source)Phosphate Binder, CalciumCALCIUM ORAL Take by mouth. ActiveCalcium Carbonate / vitamin D3 (1 source)CALCIUM CARBONATE/VITAMIN D3 (VITAMIN D-3 ORAL) Take by mouth. Active Calcium Citrate (11 sources)Calcium Citrate Activecholecalciferol 0.025 mg oral tablet (1 source)Vitamin DStart: 90-01-6493cpnd 1 tablet by mouth once dailycalcium (as carbonate)-vitamin D 90 mg-25 mcg (1000 intl units) oral tablet See Instructions, Refill(s) 0, one tablet by mouth daily Start Date: 02/11/21 Status: Orderedcholecalciferol, vitamin D3, (VITAMIN D3 ORAL) (1 source)cholecalciferol, vitamin D3, (VITAMIN D3 ORAL) Take by mouth. Active Fish Oils (1 source)Start: 60-96-9117noth 1 capsule by mouth once dailyEPA Fish Oil 1000 mg oral capsule 1,000 mg = 1 cap(s), Oral, Daily, Refills(s) 0 Start Date: 02/11/21 Status: OrderedGLUC BURTON/CHONDR BURTON A NA/SODIUM (ZUNCKGSLRZM-KGNXSNOIPOH-WLOHUN ORAL) (1 source)GLUC BURTON/CHONDR BURTON A NA/SODIUM (JIGJRMNKHNA-TQNTKQMWWVH-OAFRAD ORAL) Take by mouth. Activeibuprofen 800 mg oral tablet (1 source)Nonsteroidal Anti-inflammatory Drugtake 1 tablet by mouth every twelve hours as neededibuprofen (MOTRIN) 800 mg tablet Take 800 mg by mouth every 12 hours as needed. ActiveLutein (1 source)LUTEIN ORAL Take by mouth. ActiveMagnesium (11 sources)Magnesium Activemelatonin 3 mg oral tablet (14 sources)Start: 56-93-8943gfwd 1 tablet by mouth once daily at bedtime Melatonin 3 mg Tablet Active 3 MG PO Daily at bedtime March 24, 2022 11:00pm Start: 50-83-5786cxdd 5 mg by mouth once daily at bedtimemelatonin 5 mg, Oral, Once a day (at bedtime), Refills(s) 0 Start Date: 02/11/21 Status: Orderedtake 10 mg by mouth once daily at bedtimemelatonin 1 mg tab Take 10 mg by mouth daily at bedtime. ActiveMelatonin Activemeloxicam 15 mg oral tablet (18 sources)Nonsteroidal Anti-inflammatory DrugStart: 49-62-2709gcyy 1 tablet by mouth once daily at mealtimeMeloxicam 15 mg tablet Active 0 .ROUTE .COMPLEX 90 February 16, 2024 7:34am TAKE 1 TABLET BY MOUTH DAILY WITH FOOD 30Start: 02-11-2021 End: 35-49-7395uxge 1 tablet by mouth once dailyMeloxicam 15 mg tablet Discontinued 15 MG PO Daily February 12, 2022 11:00pm February 16, 2024 7:35amMULTI- VITAMIN ORAL (1 source)MULTI-VITAMIN ORAL Take by mouth. ActiveOmega-3 Fatty Acids-Vitamin E (FISH OIL) 1,000 mg cap (1 source)[place]-3 Fatty Acids-Vitamin E (FISH OIL) 1,000 mg cap Take 1 capsule by mouth. ActiveVitamin D (11 sources)Vitamin D Activework limitations (1 source)Start: 01-96-6007jrul limitations work limitations, Patient seen today in clinic okay to return to work 02/11/21 no twisting, no lifting over 10lbs x 4 weeks, Print Requisition, Compound Start Date: 02/11/21 Status: Ordered Completed/Discontinued Medications MedicationDrug Class(es)DatesSig (Normalized)Sig (Original)acetaminophen 325 mg / HYDROcodone bitartrate 5 mg oral tablet (12 sources)Opioid AgonistStart: 04-09-2022 End: 89-54-4753dwjb 1 tablet by mouth every six hours as needed for pain Hydrocodone-Acetaminophen 5-325 mg tablet Discontinued 1 TAB PO Q6H as needed for pain 23 04April 09, 2022 November 01, 2024 10:50amStart: 02-04-2021 End: 80-36-5391ectv 1 tablet by mouth every six hours as needed for pain Hydrocodone-Acetaminophen 5-325 mg tablet Discontinued 1 TAB PO Q6H as needed for pain 10 November 16, 2021 February 13, 2022 5:12amHYDROcodone-Acetaminophen 5-325 MG Not Available Oral for 3 Days Activeaspirin 81 mg delayed release oral tablet (2 sources)Platelet Aggregation Inhibitor, Nonsteroidal Anti-inflammatory Drug Start: 05-03-2018 End: 08-89-6495goze 1 tablet by mouth once dailyAspirin (Aspir-81) 81 mg Tablet,Delayed Release (Dr/Ec) Discontinued 81 MG PO Daily May 02, 2018 11:00pm February 13, 2022 5:12amASPIRIN (ASPIR-81 ORAL) Take by mouth. Active docusate sodium 100 mg oral capsule (2 sources)Start: 11-16-2021 End: 64-90-8954fbxc 1 capsule by mouth once dailyDocusate Sodium (Colace) 100 mg capsule Discontinued 100 MG PO Daily November 16, 2021 12:00amMa2021 5:12amhydrocortisone 25 mg/ml topical cream (13 sources)CorticosteroidStart: 11-98-5692Plpevx-HC 2.5 % 1 application Externally Twice a day for 14 days Dec, Not-Takinghydrocortisone acetate 10 mg/ml / pramoxine hydrochloride 10 mg/ml rectal foam (2 sources)CorticosteroidStart: 11-16-2021 End: 87-57-5365Kysxbdrtfpltuf-Pramoxine (Proctofoam Hc) 1-1 % foam Discontinued 1 APPLIC [place] 3 to 4 times per day as needed for hemorrhoids November 16, 2021 12:00am February 13, 2022 5:12amProctofoam HC 1-1 % Not Available External for 30 Days Activelidocaine hydrochloride 0.02 mg/mg topical gel (14 sources)Antiarrhythmic, Amide Local AnestheticGlydo 2 % Not Available External for 7 Days Not-TakingOmeprazole Magnesium (Prilosec Otc) 20 mg tablet,delayed release (DR/EC) (1 source)Start: 05-03-2018 End: 52-55-0496hrrb 1 tablet by mouth once dailyOmeprazole Magnesium (Prilosec Otc) 20 mg tablet,delayed release (DR/EC) Discontinued 20 MG PO Daily May 02, 2018 11:00pm February 13, 2022 5:12am Problems Active Problems Problem ClassificationProblemDateDocumented DateEpisodic/ChronicAcute bronchitis (2 sources)Acute bronchitis; Translations: [Acute bronchitis due to other specified organisms]Onset: 45-39-3908QrfmrfmkRcib and rectal conditions (15 sources)Anal fissure; Translations: [Anal fissure, unspecified]Onset: 12-30-2021 Resolved: 34-72-2934ObbrromgPagbhw (3 sources)Uncomplicated asthma; Translations: [Unspecified asthma, uncomplicated]Onset: 30-08-9745OdzvgfkU Codes: Fall (1 source)Fall; Translations: [Unspecified fall, initial encounter]Onset: 38-33-1189SorbthgjEupcgfezsskvoplx hemorrhage (2 sources)Melena; Translations: [Hematochezia]Onset: 12-30-2021 Resolved: 03-19-7860QwebwobgGkyxuupailx (16 sources)Hemorrhoids; Translations: [Unspecified hemorrhoids]Onset: 12-30-2021 Resolved: 60-25-8118BjdvcsmsCckjk connective tissue disease (1 source)H/O: arthrodesis; Translations: [Arthrodesis status]EpisodicOther nervous system disorders (14 sources)Ulnar neuropathy; Translations: [Lesion of ulnar nerve, left upper limb]ChronicOther nervous system disorders (2 sources)Lesion of ulnar nerve, left upper limbOnset: 12-04-2021 Resolved: 39-69-2592PisvqhfXtocq nervous system disorders (11 sources)Chronic pain; Translations: [Other chronic pain]ChronicOther nervous system disorders (5 sources)Other chronic painOnset: 01-12-2022 Resolved: 90-99-2877BrmobndIxmot nervous system disorders (1 source)Acute postoperative pain; Translations: [Other acute postprocedural pain]90-84-6637MkrnitlsKyamb non-traumatic joint disorders (1 source)Pain in elbow; Translations: [Pain in unspecified elbow]Onset: 63-86-5217ZlyylwquZleqc non-traumatic joint disorders (2 sources)Pain in right shoulder; Translations: [Right shoulder pain]11-01-2024 EpisodicOther nutritional; endocrine; and metabolic disorders (3 sources)Obese class I; Translations: [Body mass index 34.0-34.9, adult]Onset: 19-02-1863JkcrvdlKzcom nutritional; endocrine; and metabolic disorders (2 sources)Obesity; Translations: [Obesity, unspecified]13-13-2958HthphfjJyynf nutritional; endocrine; and metabolic disorders (1 source)Simple obesity ; Translations: [Other obesity due to excess calories] Onset: 00-76-3662UassbyzUbmnh nutritional; endocrine; and metabolic disorders (1 source)Obesity, unspecified; Translations: [Obesity, unspecified]11-01-2024 ChronicOther nutritional; endocrine; and metabolic disorders (1 source)Overweight; Translations: [Overweight]EpisodicOther screening for suspected conditions (not mental disorders or infectious disease) (1 source)Patient encounter status; Translations: [Encounter for screening mammogram for malignant neoplasm of breast]13-49-1074LfzlaucyRxaojfoq codes; unclassified (2 sources)Obstructive sleep apnea syndrome; Translations: [Obstructive sleep apnea]Onset: 07-24-7431XmetcykKcapzmgc codes; unclassified (1 source)Symptom: generalized; Translations: [Other general symptoms and signs] EpisodicResidual codes; unclassified (1 source)Mammogram declined; Translations: [Procedure and treatment not carried out because of patient's decision for unspecified reasons]32-47-6153Hvtamsoa Residual codes; unclassified (1 source)Procedure and treatment not carried out because of patient's decision for unspecified reasons; Translations: [Surgical or other procedure not carried out because of patient's decision]06-35-8337JxlmnlklJnogrymo codes; unclassified (2 sources)Pain; Translations: [Pain, unspecified]56-20-6661DuqnhubfNfxrsvnqdgo; intervertebral disc disorders; other back problems (20 sources)Cervical disc disorder; Translations: [Cervical disc disorder, unspecified, unspecified cervical region]Onset: 08-31-2014 Resolved: 94-44-8334MwhdgpuYzfaunnoaol; intervertebral disc disorders; other back problems (11 sources)Spinal stenosis, lumbar region with neurogenic claudication; Translations: [Radiculopathy, lumbar region]Onset: 06-25-2014 Resolved: 05-26-8863EgazemssFsdgsbrrblp injury; contusion (1 source)Contusion of hip; Translations: [Contusion of unspecified hip, initial encounter]Onset: 38-13-9688NhfvhwyaAjyovdzgbfhl (1 source)Hemorrhage of anus and rectum; Translations: [Hemorrhage of anus and rectum]Onset: 09-22-3431Pvpoqtuvezvj (1 source)Z01.810 - Encounter for preprocedural cardiovascular examination; Translations: [Z01.810 - Encounter for preprocedural cardiovascular examination] Onset: 69-52-4611Ngaztgiynpex (1 source)K92.1 - Melena; Translations: [K92.1 - Melena]Onset: 02-13-2022 Unclassified (1 source)Z01.812 - Encounter for preprocedural laboratory examination; Translations: [Z01.812 - Encounter for preprocedural laboratory examination] Onset: 17-15-5840Aicvedteqweo (1 source)M48.062 - Spinal stenosis, lumbar region with neurogenic claudication; Translations: [M48.062 - Spinal stenosis, lumbar region with neurogenic claudication]Onset: 90-25-2136Ggjfxjfhelcc (1 source)K62.89 - Other specified diseases of anus and rectum; Translations: [K62.89 - Other specified diseases of anus and rectum]Onset: 11-16-2021 Unclassified (1 source)Exposure to acute respiratory syndrome coronavirus 2; Translations: [Contact with and (suspected) exposure to COVID-19] Past or Other Problems Problem ClassificationProblemDateDocumented DateEpisodic/ChronicCardiac dysrhythmias (1 source)Palpitations; Translations: [Palpitations]Onset: 75-00-0253Dakyelxv Malaise and fatigue (1 source)Malaise and fatigue; Translations: [Other malaise and fatigue]Onset: 54-75-4885UglfawcyIzdaaalvj of unspecified nature or uncertain behavior (1 source)Neoplasm of uncertain behavior of skin; Translations: [Neoplasm of uncertain behavior of skin]Onset: 79-77-5230EecaojjnShpeamjqcef chest pain (1 source)Chest pain; Translations: [Other chest pain]Onset: 18-58-6954Gdcbgodc Other connective tissue disease (1 source)Muscle pain; Translations: [Unspecified myalgia and myositis]Onset: 86-31-5656QilpfbeoIacyx infections; including parasitic (1 source)History of parasitic disease; Translations: [Personal history of other infectious and parasitic disease]Onset: 48-38-3374WnyvdwizKnxix nervous system disorders (1 source)Paresthesia; Translations: [Paresthesia of skin]Onset: 06-25-2014 EpisodicOther non-traumatic joint disorders (1 source)Joint pain; Translations: [Pain in unspecified joint]Onset: 01-06-2016 EpisodicOther upper respiratory infections (1 source)Acute sinusitis; Translations: [Acute sinusitis, unspecified]Onset: 82-70-0895FjvtjzanDpfhspro codes; unclassified (2 sources)Asymptomatic menopausal stateOnset: 12-04-2021 Resolved: 59-28-2910GdfqrjtbKzvhxfnn codes; unclassified (1 source)Sleep disorder; Translations: [Persistent disorder of initiating or maintaining sleep]Onset: 77-75-5800ByckoizhXsrybqn and strains (1 source)Neck sprain; Translations: [Neck sprain and strain]Onset: 06-25-2014 Episodic Results Test NameValueInterpretationReference RangeFacilityBasophils Auto (Bld) [#/Vol] on 45-88-7621Ecdyuhyft (Bld) [#/Vol]Automated basophil count0.0-0.1FMemorial HospitalBasophils/100 WBC Auto (Bld)on 72-58-2655Lexemxvdo/100 WBC (Bld)Automated basophil %0.2-2.0[facility]ighCholesterol in LDL Calc [Mass/Vol]on 09-87-2011Lqiwskzjqan in LDL [Mass/Vol]Cholesterol in LDL [Mass/volume] in Serum or Plasma by calculationAcmc Healthcare System GlenbeighComment on above:<100 mg/dl IAGMFFT831-134 mg/dl NEAR OR ABOVE GDNJLBG621- 159 mg/dl BORDERLINE NBJC580-510 mg/dl HIGH>190 mg/dl VERY HIGHCholesterol in VLDL Calc [Mass/Vol]on 47-38-2899Cxcnhawsobx in VLDL [Mass/Vol]Cholesterol in VLDL [Mass/volume] in Serum or Plasma by calculationAcmc Healthcare System GlenbeighEosinophils/100 WBC Auto (Bld)on 62-93-4884Aqvxagawfmo/100 WBC (Bld) Automated eosinophil %0.9-7.0[facility] GlenbeighErythrocyte distribution width Auto (RBC) [Ratio]on 32-72-9116Ruvguddauwg distribution width (RBC) [Ratio]Erythrocyte distribution width [Ratio] by Automated count11.0-15.0 [facility] GlenbeighEstimated glomerular filtration rate (GFR) non- Americanon 28-30-1134DSL/1.73 sq M.predicted among non-blacks MDRD (S/P/Bld) [Vol rate/Area]Estimated glomerular filtration rate (GFR) non- AmericanLow>=60 mL/min/1.73m 2FMemorial HospitalGlobulin Calc (S) [Mass/Vol]on 39-74-1091Zooikzbk (S) [Mass/Vol]Serum globulin measurement by calculation (mass/volume)[facility] GlenbeighHematocrit Auto (Bld) [Volume fraction]on 12-45-2054Ctmcamkpvz (Bld) [Volume fraction]Hematocrit [Volume Fraction] of Blood by Automated count36.0-48.0[facility] GlenbeighHemoglobin [Mass/volume] in Bloodon 56-10-3123Fafynfbeuo (Bld) [Mass/Vol] Hemoglobin [Mass/volume] in Blood12.0-16.0[facility] Laboratory - Chemistry and Chemistry - challengeon 38-11-6463Irqqtew [Mass/Vol] 4.2 g/dL3.4-5.0[facility] GlenbeighALP [Catalytic activity/Vol]78 U/O19-175MnisjhbbfAcmc Healthcare System GlenbeighALT [Catalytic activity/Vol]52 U/L 14-59[facility]ighAST [Catalytic activity/Vol]27 U/L15-37 [facility] GlenbeighBilirubin [Mass/Vol]0.6 mg/dL0.2-1.0[facility]beighCalcium [Mass/Vol]9.1 mg/dL8.5-10.1FMemorial HospitalChloride [Moles/Vol]103 mmol/X71-107YcosfqhdsAcmc Healthcare System GlenbeighCholesterol [Mass/Vol]204 mg/dLHigh<=200[facility] Cholesterol in HDL [Mass/Vol]46 mg/lH65-34ClkhmgsomAcmc Healthcare System Glen[facility]igh Comment on above:> or =60 mg/dl - LOW CARDIOVASCULAR RISK<40 mg/dl - HIGH CARDIOVASCULAR RISKCO2 [Moles/Vol]12.5 mmol/LLow21.0-32.0[facility] GlenbeighCreatinine [Mass/Vol]1.00 mg/dL0.55-1.02[facility] GlenbeighGFR/1.73 sq M.predicted MDRD (S/P/Bld) [Vol rate/Area]mL/min/{1.73_m2} >=60 mL/min/1.73m 2FMemorial HospitalGlucose [Mass/Vol]91 mg/dL 74-106[facility]ighPotassium [Moles/Vol]3.9 mmol/L3.5-5.1 [facility]beighProtein [Mass/Vol]7.7 g/dL6.4-8.2FMercy Health Willard Hospitalodium [Moles/Vol]139 mmol/U707-241LhjqkddwxAcmc Healthcare System GlenbeighTriglyceride [Mass/Vol]111 mg/dL<=150[facility] GlenbeighTSH Qn1.768 m[IU]/L0.358-3.740[facility] GlenbeighUrea nitrogen [Mass/Vol]16.0 mg/dL7.0-18.0[facility] GlenbeighUrea nitrogen/Creatinine [Mass ratio]16.0 mg/mgAcmc Healthcare System Glenbeigh Laboratory - Hematology and Cell countson 73-90-7184Xserqjdw granulocytes/100 WBC (Bld)0.8 %High0.0-0.5FMemorial HospitalLeukocytes [#/volume] corrected for nucleated erythrocytes in Blood by Automated counon 13-46-7719MTZ corrected for nucl RBC Auto (Bld) [#/Vol]Leukocytes [#/volume] corrected for nucleated erythrocytes in Blood by Automated coun4.0-11.0[facility] GlenbeighLymphocytes Auto (Bld) [#/Vol]on 11-12-8649Fyzuakbwrjo (Bld) [#/Vol]Lymphocytes [#/volume] in Blood by Automated count1.2-3.8[facility] GlenbeighLymphocytes/100 WBC Auto (Bld)on 10-26-2024 Lymphocytes/100 WBC (Bld)Lymphocytes/100 leukocytes in Blood by Automated count 20.5-60.0[facility] HospitalH Auto (RBC) [Entitic mass]on 47-83-0477POQ (RBC) [Entitic mass]MCH [Entitic mass] by Automated count26.7-34.0 [facility] GlenbeighMCHC Auto (RBC) [Mass/Vol]on 51-64-5995ILMF (RBC) [Mass/Vol]MCHC [Mass/volume] by Automated count29.9-35.2FMarion HospitalV Auto (RBC) [Entitic vol]on 74-16-4654CRJ (RBC) [Entitic vol] MCV [Entitic volume] by Automated count81.0-99.0[facility] GlenbeighMonocytes Auto (Bld) [#/Vol]on 70-60-3048Jelmyquqb (Bld) [#/Vol]Automated blood monocyte count0.3-0.8[facility]ighMonocytes/100 WBC Auto (Bld)on 83-11-3248Rkaeekjpg/100 WBC (Bld)Automated monocyte %1.7-12.0 [facility] GlenbeighNeutrophils Auto (Bld) [#/Vol]on 10-26-2024 Neutrophils (Bld) [#/Vol]Neutrophils [#/volume] in Blood by Automated count 1.4-6.5FMemorial HospitalNeutrophils/100 WBC Auto (Bld)on 35-65-4142Maadcqzevum/100 WBC (Bld)Automated neutrophil %43.0-75.0[facility] GlenbeighNo Panel Informationon 13-64-3193Jdnkqddwqqw # (Auto)0.1 10 3/uL0.0-0.7FMemorial HospitalImmature Granulocyte # (Auto)0.05 10 3/uLHigh0.00-0.03[facility] GlenbeighPlatelet mean volume Auto (Bld) [Entitic vol]on 53-42-5927Hgjvxamu mean volume (Bld) [Entitic vol]Platelet mean volume [Entitic volume] in Blood by Automated count9.5-13.5FMemorial HospitalPlatelets Auto (Bld) [#/Vol]on 19-23-7897Pfgayrfgu (Bld) [#/Vol]Platelets [#/volume] in Blood by Automated -485JxiqnroboAcmc Healthcare System GlenbeighRBC Auto (Bld) [#/Vol]on 07-14-0598IDO (Bld) [#/Vol]Erythrocytes [#/volume] in Blood by Automated count4.20-5.40[facility] Serum or plasma albumin/globulin mass ratioon 26-18-0750Lhhvvrf/Globulin [Mass ratio]Serum or plasma albumin/globulin mass ratioBrown Memorial Hospitalerum or plasma anion gap determinationon 59-85-3519Zwrnj gap [Moles/Vol] Serum or plasma anion gap determinationBrown Memorial Hospitalerum or plasma total cholesterol/high density lipoprotein (HDL) cholesterol mass matthew 18-22-7656Eukxmflcumw.total/Cholesterol in HDL [Mass ratio]Serum or plasma total cholesterol/high density lipoprotein (HDL) cholesterol mass ratAcmc Healthcare System GlenbeighComment on above:3.3 - 4.4 LOW RISK4.4 - 7.1 AVERAGE RISK7.1 - 11.0 MODERATE RISK>11.0 HIGH RISKCoding Summary.on 67-45-5882Wcltaq Summary. CD:[id number]:[id number]+PGhlYWQ+GR6EOINhN16gqRAdfE2PE8pGQT5HTSLGJLIGNT4SYK3ut UH9LZuaQ4BjuqDj [file] ZTog (more content not included)...[facility] HospitalConsent for Treatmenton 30-62-3140[place] for Treatment [id number]#1.00CD:127[facility] HospitalDischarge Instructionson 81-30-3466Zewlzrqfz Instructions [id number]:127[facility] Clinical Summaryon 42-86-8999FK Clinical Summary [address] [address] ED Clinical Summary Person Information Name: MILENA AQUINO/[facility] Age: 56 Years : 1965 Sex: Female Language: Japanese PCP: TINO RAMEY DO Marital Status: Visit [...] 10/27/2022 11:47:38 10/27/2022 11:47:38 10/27/2022 11:47:38 ADDRESS: [address] [place] [phone] PHYS DOC NOTES: MEDICAL INFORMATION: Prescriptions Given: Medications to Continue with No Changes Other Medications acetaminophen-hydrocodone (Sutton 325 mg-5 mg oral tablet) 1 Tablets By Mouth every 6 hours as needed for pain. Refills: 0. calcium-vitamin D (calcium (as carbonate)-vitamin D 90 mg-25 mcg (1000 intl units) oral tablet) onetablet by mouth daily. melatonin 5 Milligram By Mouth once a day (at bedtime). meloxicam (meloxicam 15 mg oral tablet) 1 Tablets By Mouth every day. Misc Prescription (work limitations) 0. Patient seen today in clinic okay to return to work 02/11/21no twisting, no lifting over 10lbs x 4 weeks. Refills: 0. omega-3 polyunsaturated fatty acids (EPA Fish Oil 1000 mg oral capsule) 1 Capsules By Mouth every day. PATIENT EDUCATION INFORMATION: Instructions: Musculoskeletal Pain Follow up: With: Address: When: [facility]: [facility] [phone] In 3 days 10/30/2022 DIAGNOSIS: Contusion, hip; Elbow pain; FallNormalFisher Jacques Medical CenterED Note-Physicianon 04-94-6275US Note-PhysicianBasic Information Time Seen: Juan Maddox DO 10/27/2022 [...] follow-up imaging may be necessary. Educated to [facility]. Patient reports this is a workers comp claim and is given [employer] followup. Patient was encouraged toreturn to the ED if symptoms worsen or [...] prescription medications Follow-up With When Contact Information [facility]: [facility] [phone] In 3 days 10/30/2022 EST Additional Instructions: Patient Education Musculoskeletal Pain Attestation Patient seen and evaluated by the physician bindery assistant. Attending physician was present in the emergency department and supervised care. This visit was performed by both the physician and an APC. I performed all aspects of the MDM as documented. This report was transcribed using voice recognition software. Every effort was made to ensure accuracy, however, inadvertently computerized dross puller mistakes may be present. Appropriate healthcare PPE [...] tablet, 15 mg= 1 tab(s), Oral, Daily Sutton 325 mg-5 mg oral tablet, 1 tab(s), [...] dislocation, worrisome bone destruc (more content not included)...[facility] HospitalComment on above:Result Comment: Electronically Signed By: Jaskaran Bang PA-C\.br\Date and Time Signed: 10/27/2313:15 EST\.br\Electronically Co-Signed By: Juan Maddox DO\.br\Date and Time Co-Signed: 10/27/22 17:32 ESTED Patient Education Noteon 53-41-1734DS Patient Education NoteOrthopedics Musculoskeletal Pain Musculoskeletal pain refers to aches [...] cause more pain. When the pain gets better,slowly resume your normal activities. Gradually increase the intensity and duration of your activities or exercise. Managing pain, stiffness, and swelling ? Take wmrl-tiy-ieveiaj and prescription medicines only as told by [...] musculoskeletal pain. Ways to lower stress may includemeditation, yoga, cognitive or behavioral therapy, acupuncture, and massage therapy. This information is not intended to replace advice given to you by your health care provider. Make sure you discuss any questions you have with your health care provider. Document Released: 09/13/2006 Document Revised: 08/26/2018 Document Reviewed: 10/13/2017 ISC8 Patient Education ? 2019 [employer] ED Patient Summaryon [id number] Patient Summary [place] [address] Patient Discharge Instructions Person Information Name: MILENA AQUINO Age: 56 Years Arrival Date: 10/27/2022 10:47:01 Discharge Diagnosis: Contusion, hip; Elbow pain; Fall Primary Care Physician: TINO RAMEY DO Provider Information Primary Provider: Juan Maddox DO Advanced Proof Machine Operator:Jaskaran Bang PA-C The exam and treatment you received in the Emergency Department were for an urgent problem and are not intended as complete care. It is important that you follow up with a doctor, nurse practitioner,or physician?s bindery assistant for ongoing care. If your symptoms become worse or you do not improve as expected and you are unable to reach your usual health care provider, you should return to the Emergency Department. We are available 24 hours a day. SCOUT AQUINOH Kenan has been given the following list of patient education materials, prescriptions and follow-up instructions: Follow-up Instructions: With: Address: When: [facility]: [facility] [phone] In 3 days 10/30/2022 In the event that this physician does not participate in your insurance network, please consult with your insurance company to find a nearby participating provider. Patient Education Materials: Musculoskeletal Pain A MESSAGE TO ALL PATIENTS REGARDING OPIOIDS PRESCRIPTION OPIOIDS: WHAT YOU NEED TO KNOW Prescription opioids can be used to help relieve apdxsyap-co-slfpka pain and are often prescribed following a [...] and have fewer risks and side effects. Optionsmay include: ? Pain relievers such as acetaminophen, [...] unused prescription opioids: Find your community drug take- back program or [employer] mail-back program, or flush them down the toilet, following guidance from the Food and Drug Administration (www.fda.gov/Drugs/ResourcesForYou). ? Visit www.cdc.gov/drugoverdose to learn about the risks of opioids abuse and overdose. ? If you believe you may be struggling with addiction, tell your health emergency care tech and ask for guidance or call [facility]?S National Helpline at 1-806-531-XYZG. f Source: US Department of Health and Human Services/[facility] (more content not included)...NormalFisher R Adams Cowley Shock Trauma CenterWorkers Comp Formson 10-27-2022 Workers Comp [id number]#1.00CD:127Normal [facility] Trauma CenterXR Elbow 3+ Views Lefton [id number] Elbow 3+ Views LeftExam Date/Time: 10/27/2022 11:21 EST Reason for Exam: [...] Abram Silva MD Transcribed by: FREDIS Technologist: [facility] HospitalXR Hip 2-3 Views Left + Pelvison [id number] Hip 2-3 Views Left + PelvisExam Date/Time: 10/27/2022 11:21 EST Reason for Exam: [...] Abram Silva MD Transcribed by: FREDIS Technologist: [facility] HospitalCBC AUTO DIFFon [id number] #0.0 103/ulNormal0.0-0.1The [facility] Health SystemComment on above:Performed By: #### CBC #### [facility] [address] [address] [address] Re NietoBasophils/100 WBC (Bld)0.5 %Normal0.2-2.0The [facility] Comment on above:Performed By: #### CBC #### [facility] [address] [place] [address] Dr. Re Wilson #0.1 103/ulNormal0.0-0.7The [facility] Health SystemComment on above: Performed By: #### CBC #### [facility] [address] [place] [address] Dr. Re Nunezosinophils/100 WBC (Bld)1.1 %Normal0.9-7.0The [facility] Comment on above:Performed By: #### CBC #### [facility] [address] [place] [address] Dr. Re Nunezrythrocyte distribution width (RBC) [Ratio]13.5 %Xdjyvh08.0-15.0 The [facility] SystemComment on above:Performed By: #### CBC #### [facility] [address] [place] [address] Dr. Re NietoHematocrit (Bld) [Volume fraction]45.4 %Lauuft70.0-48.0The [facility] Health SystemComment on above:Performed By: #### CBC #### [facility] [address] [place] [address] Dr. Re NietoHemoglobin (Bld) [Mass/Vol]15.6 g/sPDmlmhp83.0-16.0The [facility] SystemComment on above:Performed By: #### CBC #### [facility] [address] [place] [address] Dr. Re Laurent #0.02 10e3/ulNormal0.00-0.03The [facility] SystemComment on above:Performed By: #### CBC #### [facility] [address] [place] [address] Dr. Re Laurent %0.3 %Normal0.0-0.5The [facility] SystemComment on above: Performed By: #### CBC #### [facility] [address] [place] [address] Dr. Re Hartman #2.6 103/ulNormal1.2-3.8The [facility] SystemComment on above:Performed By: #### CBC #### [facility] [address] [place] [address] Dr. Re Spencermphocytes/100 WBC (Bld)39.6 %Oejann51.5-60.0The [facility] Health SystemComment on above:Performed By: #### CBC #### [facility] [address] [place] [address] Dr. Re Portillo DIFF REQNONormalThe [facility] Health SystemComment on above: Performed By: #### CBC #### [facility] [address] [place] [address] Dr. Re Pizarro (RBC) [Entitic mass]30.2 gbTbcixk95.7-34.0The [facility] SystemComment on above:Performed By: #### CBC #### [facility] [address] [place] [address] Dr. Re Pizarro (RBC) [Mass/Vol]34.4 g/kMFljslo71.9-35.2The [facility] SystemComment on above:Performed By: #### CBC #### [facility] [address] [place] [address] Dr. Re Ayala (RBC) [Entitic vol]88.0 bDIjfbwe27.0-99.0The [facility] SystemComment on above:Performed By: #### CBC #### [facility] [address] [place] [address] Dr. Re Cloud #0.6 103/ulNormal0.3-0.8The [facility] SystemComment on above:Performed By: #### CBC #### [facility] [address] [place] [address] Dr. Re Ramirezocytes/100 WBC (Bld)9.7 %Normal1.7-12.0The [facility] Comment on above:Performed By: #### CBC #### [facility] [address] [place] [address] Dr. Re Mae #3.2 103/ulNormal1.4-6.5The [facility] SystemComment on above:Performed By: #### CBC #### [facility] [address] [place] [address] Dr. Re Hidalgoutrophils/100 WBC (Bld)48.8 %Ytpzlk50.0-75.0The [facility] SystemCommunson healthcare [facility] on above:Performed By: #### CBC #### [facility] [address] [place] [address] Dr. Re NietoPlatelet mean volume (Bld) [Entitic vol]10.4 fLNormal9.5-13.5The [facility] SystemCommunson healthcare [facility] hospital on above:Performed By: #### CBC #### [facility] [address] [place] [address] Dr. Re NietoPLT245 103/nmCwdqql892-014Xnn [facility] SystemCommunson healthcare [facility] on above: Performed By: #### CBC #### [facility] [address] [place] [address] Dr. Re NietoRBC5.16 106/ulNormal4.20-5.40The [facility] on above:Performed By: #### CBC #### [facility] [address] [place] [address] Dr. Re NietoWBC6.5 103/ulNormal4.0-11.0[facility] on above: Performed By: #### CBC #### [facility] [address] [place] [address] Dr. Re NietoLIPID PROFILEon 29-28-2680BEPP-HDL RATIO NORMSEE [facility] HospitalCommun[facility] on above:Result Comment: 3.3 - 4.4 LOW RISK 4.4 - 7.1 AVERAGE RISK 7.1 - 11.0 MODERATE RISK >11.0 HIGH RISKPerformed By: #### LIPID, CMP #### [facility] [address] [place] [address] Dr. Re NietoCholesterol [Mass/Vol]255 mg/dLCritically high<=200The [facility] on above:Performed By: #### LIPID, CMP #### [facility] [address] [address] [address] Re NietoCholesterol in HDL [Mass/Vol]49 mg/bHJyybll99-68LjpPromedica Toledo HospitalCommunson healthcare [facility] on above:Performed By: #### LIPID, CMP #### [facility] [address] [address] [address] Re NietoCholesterol in LDL [Mass/Vol]186.4 mg/dLNoProMedica Flower HospitalCommunson healthcare [facility] on above:Performed By: #### LIPID, CMP #### [facility] [address] [address] [address] Re Pappas.total/Cholesterol in HDL [Mass ratio]5.2 {ratio} NormalPromedica Toledo HospitalCommunson healthcare grayling hospital on above:Performed By: #### LIPID, CMP #### [facility] [address] [address] [address] Re Pedro NORMAL> or = 60 mg/dl - LOW CARDIOVASCULAR RISK <40 mg/dl - HIGH CARDIOVASCULAR RISKHocking Valley Community HospitalCommunson healthcare [facility] hospital on above:Performed By: #### LIPID, CMP #### [facility] [address] [address] [address] Re Maher CALC NORMALSEE BELOWHocking Valley Community HospitalComment on above:Result Comment: <100 mg/dl OPTIMAL 100 - 129 mg/dl NEAR OR ABOVE OPTIMAL 130 - 159 mg/dl BORDERLINE HIGH 160 - 189 mg/dl HIGH >190 mg/dl VERY HIGH Performed By: #### LIPID, CMP #### [facility] [address] [address] [address] Re NietoTriglyceride [Mass/Vol]98 mg/dLNormal<=150[facility] Comment on above:Performed By: #### LIPID, CMP #### [facility] [address] [address] [address] Re LuevanoLDL CALC19.6 mg/dLNoProMedica Flower HospitalComment on above: Performed By: #### LIPID, CMP #### [facility] [address] [address] [address] Re NietoPROF 14(COMP METB)on 46-43-1579Ezqazut [Mass/Vol]4.3 g/dLNormal 3.4-5.0The [facility] SystemComment on above:Performed By: #### LIPID, CMP #### [facility] [address] [address] [address] Re NietoAlbumin/Globulin [Mass ratio]1.3 {ratio}NormalThe [facility] Health SystemComment on above:Performed By: #### LIPID, CMP #### [facility] [address] [address] [address] Re Chacon [Catalytic activity/Vol]57 U/NZleixr12-612Yxe [facility] SystemComment on above:Performed By: #### LIPID, CMP #### [facility] [address] [address] [address] Re Lugo [Catalytic activity/Vol]25 U/PAsozpu79-97Hlv [facility] SystemComment on above:Performed By: #### LIPID, CMP #### [facility] [address] [address] [address] Re Kolb gap [Moles/Vol]12.7 mmol/LNormalPromedica Toledo Hospital Comment on above:Performed By: #### LIPID, CMP #### [facility] [address] [address] [address] Re NietoAST [Catalytic activity/Vol]16 U/HUzttos13-70Lpi [facility] SystemComment on above:Performed By: #### LIPID, CMP #### [facility] [address] [address] [address] Re NietoBilirubin [Mass/Vol]0.7 mg/dLNormal0.2-1.0The [facility] Comment on above:Performed By: #### LIPID, CMP #### [facility] [address] [address] [address] Re NietoCalcium [Mass/Vol]9.4 mg/dLNormal8.5-10.1The [facility] Comment on above:Performed By: #### LIPID, CMP #### [facility] [address] [address] [address] Re NietoChloride [Moles/Vol]102 mmol/HBxmtjq21-662Dss [facility] Comment on above:Performed By: #### LIPID, CMP #### [facility] [address] [address] [address] Re NietoCO2 [Moles/Vol]27.3 mmol/LBovoks80.0-32.0The [facility] Comment on above:Performed By: #### LIPID, CMP #### [facility] [address] [address] [address] Re NietoCreatinine [Mass/Vol]0.83 mg/dLNormal0.55-1.02Promedica Toledo HospitalComment on above:Performed By: #### LIPID, CMP #### [facility] [address] [address] [address] Re NunezGFR-AF EMIRATI>60Normal>=60The [facility] SystemComment on above:Performed By: #### LIPID, CMP #### [facility] [address] [address] [address] Re NunezGFR-NON AF EMIRATI>60Normal>=60The [facility] SystemComment on above:Performed By: #### LIPID, CMP #### [facility] [address] [address] [address] Re NietoGlobulin (S) [Mass/Vol]3.3 g/dLNormalThe [facility] SystemComment on above:Performed By: #### LIPID, CMP #### [facility] [address] [address] [address] Re NietoGlucose [Mass/Vol]87 mg/vDZwoyqn81-327Mkl [facility] Comment on above:Performed By: #### LIPID, CMP #### [facility] [address] [address] [address] Re NietoPotassium [Moles/Vol]4.0 mmol/LNormal3.5-5.1The [facility] Comment on above:Performed By: #### LIPID, CMP #### [facility] [address] [address] [address] Re NietoProtein [Mass/Vol]7.6 g/dLNormal6.4-8.2[facility] Comment on above:Performed By: #### LIPID, CMP #### [facility] [address] [address] [address] Re NietoSodium [Moles/Vol]138 mmol/RGcetpm133-626Xaq [facility] Comment on above:Performed By: #### LIPID, CMP #### [facility] [address] [place] [address] Dr. Re NietoUrea nitrogen [Mass/Vol]14.0 mg/dLNormal7.0-18.0Promedica Toledo HospitalComment on above:Performed By: #### LIPID, CMP #### [facility] [address] [place] [address] Dr. Re NietoUrea nitrogen/Creatinine [Mass ratio]16.9 mg/mgNormalThe [facility] SystemComment on above:Performed By: #### LIPID, CMP #### [facility] [address] [place] [address] Dr. Re Munroe-19 [facility] 66-48-0998UWEF-CoV-2 (COVID-19) RNA CARLEY+probe Ql (Unsp spec)NegativeNormalNegativeAcmc Healthcare System GlenbeighComment on above:Order Comment: Healthcare Worker?: NResult Comment: Testing for SARS-CoV-2 by RT-PCR This test was developed and its performance characteristics determined by [employer] and validated at the [facility] [...] is terminated or revoked sooner. PERFORMED BY: [place] [address] PATHOLOGIST MARKET RISK SPECIALIST JACKIE DAMON M.D.Performed By: #### COVID 19 [place] [facility] #### [place] [id number] USAECG 12 lead ECGon 73-55-6339SJE 12 lead ECGSELECT [facility]ICAL [facility] [place] [address] [place] [address] Electrocardiograph Report Signed Patient: Milena Aquino MR#: [id number] 7 : 1965 Acct:[id number] Age/Sex: 56 / F ADM Date: 03/25/22 Loc: Room: Type: [facility] Attending Dr: Dale Gonzalez MD Ordering [...] (201) on 03/25/2022 5:38:26 PM Referred By: MW Electronically Signed By:BK HER DO Transcribed By: ZARINA Signed By Bk Her DO 03/25 1738NoUK HealthcareCOVID-19 Antigenon 02-11-2022 COVID-19 AntigenHealthcare Worker?: N Reference Range: Negative Negative results, [...] developed and its performance characteristic determined by [employer] and validated at [facility]. [...] for SARS Antigen by [employer] PERFORMED BY: [place] [address] PATHOLOGIST MARKET RISK SPECIALIST JACKIE DAMON M.D.NormalAcmc Healthcare System GlenbeighComment on above: Performed By: #### COVID-19 CIELO, SOFIANEG #### [place] [address] USASofia Ag Negativeon 01-67-5841Aavnx Ag NegativeNegative NormalNegativeAcmc Healthcare System GlenbeighComment on above:Result Comment: This is a duplicate [employer]iel[employer] SARS Antigen ([employer]) result to be used for statistical tracking purpose only. PERFORMED BY: [address] [place] [address] PATHOLOGIST MARKET RISK SPECIALIST JACKIE DAMON M.D.Performed By: #### COVID-19 MICHAEL BUCK #### [facility] [address] [phone] USAXR cerv spine AP/LAT/FLX/EXTon 21-48-5361VP cerv spine AP/LAT/FLX/EXTSELECT MEDICAL [facility] [place] [address] [phone] XRay Report Signed Patient: Milena Aquino MR#: [id number] 7 : 1965 Acct:[id number] Age/Sex: 56 / F ADM Date: 12/11/21 Loc: [place] Room: Type: [facility] CLI Attending Dr: Shyla Barcenas MD Ordering Provider: Shyla Barcenas MD Date of Service: 12/11/21 XR/XR cerv spine AP/LAT/FLX/EXT: PAIN Copies to: Shyla Barcenas MD Cervical spine 12/11/2021. CLINICAL DATA: [...] Roberts Jr., M.D.12/11/2021 4:23 PM Dictation Location: [place] [address] Transcribed By: [facility] 12/11/211622 Dictated By: Freeman Roberts Jr, MD 12/11/21 162 Signed By: 12/11/21 162NormSelect Medical Specialty Hospital - Columbus SouthXR lumbar spine 6V w bending on 77-50-5850QN lumbar spine 6V w bendingSELECT [facility]ICAL SPECIAL[facility] [place] [address] [place] [address] XRay Report Signed Patient: Milena Aquino MR#: [id number] 7 : 1965 Acct:[id number] Age/Sex: 56 / F ADM Date: 12/11/21 Loc: [place] Room: Type: [facility] Attending Dr: Shyla Barcenas MD Ordering Provider: Shyla Barcenas MD Date of Service: 12/11/21 XR/XR lumbar spine 6V w bending: M48.062 Copies to: Shyla Barcenas MD Lumbar spine 12/11/2021. CLINICAL DATA: [...] Roberts Jr., M.D.12/11/2021 4:21 PM Dictation Location: [place] [address] Transcribed By: [facility] 12/11/21 162 Dictated By: Freeman Roberts Jr, MD 12/11/21 1617 Signed By: 12/11/21 1621NoUK HealthcareCNPNon [id number] Telephone (SPNMAV) MILENA AQUINO ([id number]) 1965 F Date Time Provider Department 11/14/21 ESTRELLITA GUEVARA During your visit today, we recorded the following information about you: Eleanor Waddell LPN 11/14/2021 7:18 AM Signed Please call pt and assist with scheduling spine intervention order from Dr Rodas Injection Type - Transforaminal Lumbar epidural steroid injection: Right; Level: L3-4 CPT 25535 Diagnosis: M54.16 +81mg ASA ok to take [...] ASPIRIN (ASPIR-81 ORAL) Take by mouth. - Gibsonia-3 Fatty Acids-Vitamin E (FISH OIL) 1,000 mg cap Take 1 capsule by mouth. - LUTEIN ORAL Take by mouth. - CALCIUM CARBONATE/VITAMIN D3 (VITAMIN D-3 ORAL) Take by mouth. - GLUC BURTON/CHONDR BURTON A NA/SODIUM (USGTZNSBDYQ-DMVLNYPQJEF-VTSISE ORAL) Take by mouth. - melatonin 1 mg tab Take 10 mg by mouth daily at bedtime. Problem List As Of Date 11/14/2021 Noted Resolved Cervical disc herniation [M50.20] 08/31/2014 Encounter Status:Closed by ELEANOR WADDELL LPN on 11/14/21[facility] [id number] Visit (NSFRVW) MILENA AQUINO ([id number]) 1965 F Date Time Provider Department 11/13/21 [...] She had a previous C5-7 ACDF [place] [address] Edson Shah. Prior to her [...] Ibuprofen 800 mg q12h prn Physical Therapy Aged Or Disabled Carer Acupuncture Mobic PREVIOUS SPINAL SURGERY: SURGERY #1: [...] mouth. ASPIRIN (ASPIR-81 ORAL) Take by mouth. Gibsonia-3 Fatty Acids-Vitamin E (FISH OIL) 1,000 mg cap Take 1 capsule by mouth. LUTEIN ORAL Take by mouth. CALCIUM CARBONATE/VITAMIN D3 (VITAMIN D-3 ORAL) Take by mouth. GLUC BURTON/CHONDR BURTON A NA/SODIUM (BWCIUVLPPFI-LNDNZYOQSPW-WBSGQZ ORAL) Take by mouth. melatonin 1 mg [...] or clotting disorders, anemia,a (more content not included)...[facility] 11-13-2021 CNPNTelephone (SPNMAV) MILENA AQUINO ([id number]) 1965 F Date Time Provider Department 11/13/21 ESTRELLITA GUEVARA SPNMAV During your visit today, [...] radiculopathy [M54.16] Order(s):SURGICAL REQUEST - ELECTIVE (04/2020) [[id number]] Order #: [id number]: 1 Prescriptions as of 11/13/2021 - meloxicam [...] ASPIRIN (ASPIR-81 ORAL) Take by mouth. - Gibson[place]-3 Fatty Acids-Vitamin E (FISH OIL) 1,000 mg cap Take 1 capsule by mouth. - LUTEIN ORAL Take by mouth. - CALCIUM CARBONATE/VITAMIN D3 (VITAMIN D-3 ORAL) Take by mouth. - GLUC BURTON/CHONDR BURTON A NA/SODIUM (IUYYQOIRGRR-NLCYACJHSEW-OEUETP ORAL) Take by mouth. - melatonin 1 mg tab Take 10 mg by mouth daily at bedtime. Problem List As Of Date 11/13/2021 Noted Resolved Cervical disc herniation [M50.20] 08/31/2014 Encounter Status:Closed by SARAH SALAZAR on 11/13/21[facility] WO CONon [id number] CSPINE WO CONEXAMINATION: MRI [facility] CON HISTORY: Radiculopathy due to cervical spondylosis [...] Electronically authenticated by: JEROD KENNEDY Date: 2021-11-03 14:34[facility] HospitalMRI LSJEISON WO CONon 40-52-2561RZU [facility] CONEXAMINATION: MRI [facility] WO CON HISTORY: Lumbosacral spondylosis with radiculopathy COMPARISON: [...] Electronically authenticated by: JEROD KENNEDY Date: 2021-11-03 14:26[facility] HospitalXR TSPINE 2 VIEWSon 92-47-6236KL TSPINE 2 VIEWSEXAMINATION: XR TSPINE 2 VIEWS HISTORY: Pain in thoracic spine [...] Electronically authenticated by: JEROD KENNEDY Date: 2021-11-03 14:45[facility] Vital Signs Date TimeVital SignValuePerforming ImjhhwuajTbrnxkzr62-82-0127 10:51-0500Body .1 cmAcmc Healthcare System Glenbeigh02-05-2025 10:51-0500Body mass index (BMI) [Ratio]32.1 kg/w1CzvjhjerfAcmc Healthcare System Glenbeigh02-05-2025 10:51-0500Body oqmxsy84.54 kgAcmc Healthcare System Glenbeigh02-05-2025 10:51-0500Diastolic blood uxtiexuf00 mm[Hg][facility] 11-01-2024 10:51-0500Heart rate76 /[facility] 11-01-2024 10:51-0500Respiratory rate12 /[facility] 11-01-2024 10:51-0500Systolic blood myigoquu543 mm[Hg][facility]03-08-2023 14:15-0500Body rfiuck23.74 kgShgiovanny Kwong Other [employer] Other 03-08-2023 14:15-0500Diastolic blood mm[Hg] Chidi Kwong Other [employer] Other 03-08-2023 14:15-7207TdM9% (BldA) [Mass fraction]97 % Chidi Kwong Other [employer] Other 03-08-2023 14:15-0500Systolic blood agmwmguv157 mm[Hg] Chidi Kwong Other [facility] [employer] Other 02-14-2023 09:45-0500Body ksfqwe53.38 kgShgiovanny Kwong Other [facility] [employer] Other 02-14-2023 09:45-0500Diastolic blood dlajijet84 mm[Hg] Chidi Kwong Other [facility] [employer] Other 02-14-2023 09:45-8707JjT7% (BldA) [Mass fraction]98 % Chidi Kwong Other [facility] [employer] Other 02-14-2023 09:45-0500Systolic blood mm[Hg] Chidi Kwong Other [facility] [employer] Other 01-31-2023 10:48-0500Body iwpsiutzdxa50.88 [degF]Juan Varsha [facility]01-31-2023 10:48-0500 Diastolic blood dzfbmioa71 mm[Hg]Juan Maddox [facility]01-31-2023 10:48-0500Heart rate69 /Christian Maddox [facility]01-31-2023 10:48-0500 Respiratory rate20 /minJuan Maddox [facility]01-31-2023 10:48-3840RdB0% (BldA) [Mass fraction]100 %Juan Varsha [facility]01-31-2023 10:48-0500 Systolic blood hxmtywui521 mm[Hg]Juan Maddox [facility]09-02-2022 11:45-0400Body xtjwde31.73 kgShgiovanny Kwong Other [facility] [employer] Other 09-02-2022 11:45-0400Diastolic blood kwhjaytu92 mm[Hg] Chidi Kwong Other [facility] [employer] Other 09-02-2022 11:45-0400Systolic blood mm[Hg] [facility]idi [facility] Other 06-07-2022 12:40-0400Body fasggr16.63 kgDaethan Barcenas Other [facility] [employer] Other 05-12-2022 16:15-0400Body lteliw31.72 kgShgiovanny Varghese Other [facility] Other 05-12-2022 16:15-0400Diastolic blood eowtrinz63 mm[Hg] Chidi Kwong Other [employer] Other 05-12-2022 16:15-3225ImK3% (BldA) [Mass fraction]97 % Chidi Kwong Other [facility] Other 05-12-2022 16:15-0400Systolic blood ejwjgdjo363 mm[Hg] Chidi Kwong Other [employer] Other 04-18-2022 16:00-0400Body dtpagw62.17 kgShgiovanny Kwong Other [employer] Other 04-18-2022 16:00-0400Diastolic blood idbgujly45 mm[Hg] Chidi Kwong Other [facility] [employer] Other 04-18-2022 16:00-0400Systolic blood mm[Hg] Chidi Kwong Other [facility] [employer] Other 04-07-2022 10:40-0400Body pmqduu43.72 kgDale Barcenas Other [facility] [employer] Other 04-05-2022 14:15-0400Body spysjd05.72 kgDavid Hykes Other [facility] [facility] Other Encounters Encounter DateEncounter TypeCare ProviderFacilityStart: 01-01-2025 End: 92-76-4475Vobhxn Alicia Berry PA-C Work Phone: Orth and Rheum InstituteComment on above:Pain (Primary Dx)Start: 11-01-2024 End: 79-05-0532aprbqejdaaOsygapwooCleveland Clinic Work Phone: Start: 11-01-2024 End: 71-28-9119Zdkwfpcnr for general adult medical examination without abnormal findingsBrown Memorial Hospitaltart: 11-01-2024 End: 08-90-5758Zsmahxq encounter procedureWashington Regional Medical Center [facility] Work Phone: Start: 55-70-4488Ksc-patient / Non-visitWashington Regional Medical Center [facility] Work Phone: Start: 59-94-2357Jvtrpob encounter statusBrown Memorial Hospitaltart: 08-29-2023 End: 51-75-1500vkglpqmckgThsoizwg Ball Other [facility] Other Start: 54-06-0558Dygksduis encounterBendanya Miller [facility] ClinicStart: 12-02-2022 End: 94-06-6913tifjouevztTwdrst Varghese Other [facility] Other Start: 27-86-9770Vutorp outpatient visit 15 minutes Chidi ZaishaFPG Pain ManagementStart: 11-23-2022 End: 35-81-7255itzpoqljdxZudggy Varghese Other [facility] Other Start: 70-21-4974Rybwfgoly encounterSherrobby KwongFPG Pain ManagementStart: 11-10-2022 End: 55-23-6872frtjowlwszMbcdyf Varghese Other [facility] Other Start: 17-40-1014Ozqhmb outpatient visit 25 minutes Chidi ZakyFPG Pain ManagementStart: 10-27-2022 End: 67-98-7325Fthzvqjtb department patient visitJohn ParenteFacility:FTMCStart: 10-27-2022 End: 35-87-8811Hxdrgsdwn department patient visitJohn Varsha [facility] Start: 44-61-5442Zkjqqdoyi for general adult medical examination without abnormal findingsDR TINO RAMEYMercer County Community Hospitaltart: 08-26-2022 End: 63-51-3198ojjugcujwbON TINO RAMEYFacility:N7Kfyej: 08-26-2022 End: 90-17-6317Ramuhckav for general adult medical examination without abnormal findingsDR TINO RAMEYShermancility:G0Ismfw: 79-83-1959Jxqcy health examination Tino Ramey Other [facility] Other Start: 05-29-2022 End: 67-90-9050wihxzyohjmMetdqo Zaky Other [facility] Other start: 46-52-0078Iecitp outpatient visit 25 minutes Chidi WillardishaFPG Pain ManagementStart: 05-21-2022(Procedure) [facility] CenterStart: 05-21-2022 End: 33-91-0223axcnvhilxaXnponb Varghese Other [facility] Other Start: 04-09-2022 End: 43-70-1820lsbfewlfxlBdpzxusp BallFacility:[facility] Start: 04-08-2022 End: 56-78-4396bdsnglgzpiXsqeakto BallFacility:[facility] Start: 03-25-2022 End: 33-92-2964frcgjarqdqDprkuzar BallFacility:[facility] Start: 03-03-2022 End: 15-33-4991hcciwnpwueHbdi Barcenas Other [facility] Other start: 20-34-2709Gynucg outpatient visit 15 minutes Shyla Hari [facility] NeurosurgeryStart: 02-13-2022 End: 03-20-0554giieheusxcYmydhqrg BallFacility:[facility] Start: 02-11-2022 End: 38-63-7609wsympwpribGlpkw L HykesFacility:[facility] Start: 02-05-2022 End: 91-82-0766nnfhhgrgybZtcvwv Zaky Other George [facility] Other Start: 48-68-3326Lkrmvl outpatient visit 15 minutes Chidi WillardishaFPG Pain ManagementStart: 01-27-2022(Procedure) [facility] CenterStart: 01-27-2022 End: 02-81-9154nbrkswjjuhJkkpqy Varghese Other [facility] Other Start: 01-13-2022 End: 23-77-3135xjpbbcyuoeJfwjjx Varghese Other [employer] Other Start: 25-41-7490Fhpymgrnd encounterSaaron Mtz Referral CoordinatorStart: 01-12-2022 End: 06-89-7571qbetgumcnfXbalnz Varghese Other [employer] Other Start: 02-96-5274Zzyuof consultation new/estab patient 60 minSaaron Mtz Pain ManagementStart: 01-01-2022 End: 00-25-4207enlkylvgtlXelq Barcenas Other [employer] Other start: 59-77-8260Hkwmvp outpatient visit 25 minutes Shyla [facility] NeurosurgeryStart: 12-30-2021 End: 26-45-5518elczazibpeFlfbq Hykes Other [employer] Other Start: 26-08-2958Goqcjo outpatient new 45 minutesDavid HykesFPG GastroenterologyStart: 12-11-2021 End: 84-38-2710yrfmlyyngkXrnt E BraunFacility:[facility] Start: 12-04-2021 End: 04-15-1297tjdpqgjyghSbdt Barcenas Other [employer] Other start: 35-43-5283Ncgmgm outpatient new 45 minutesDale [facility] NeurosurgeryStart: 11-16-2021 End: 16-84-9255Shikknoga department patient visitBenjamin BallFacility:[facility] Memorial Hospitaltart: 11-03-2021 End: 99-41-3678qaanhwfwhjRK TINO BALLFacility:H1 Procedures DateProcedureProcedure DetailPerforming ClinicianCervical arthrodesisJohn Varsha Comment on above:2014Cesarean sectionJohn Varsha Comment on above:2000Depression screeningBendanya Ramey Other Plan of Treatment DateCare ActivityDetailAuthorStart: 42-65-6019DVZ Vaccine (1 - 1-dose 75+ series)RSV Vaccine (1 - 1-dose 75+ series)[facility]: 02-01-2025 End: 49-75-2256Kboabnj encounter cxaqabxbf86/08/2025 1:40 PM EDT Office Visit Orthopaedics [address] [address] Breanne Berry PA-C [address] [place] [address] Right Shoulder Pain, XR First Per NSOrthopaedicsComment on above:Right Shoulder Pain, XR First Per NSStart: 02-01-2025 End: 32-40-1739Gxokpdu encounter /08/2025 12:30 PM EDT Appointment Radiology [address] [address] Right Shoulder Pain, XR First Per NSRadiologyComment on above:Right Shoulder Pain, XR First Per NSStart: 32-10-2987Canff-19 Vaccine ( season)Covid-19 Vaccine ( season)[facility]art: 01-16-8566Cwtrvcchx vaccinationInfluenza Vaccine (#1)[facility]ertart: 72-02-3545Ufinbesv ScreeningDiabetes ScreeningBarney Children's Medical Centertart: 97-12-2605Ucivlssjcjwi Vaccine: 50+ (1 of 1 - PCV)Pneumococcal Vaccine: 50+ (1 of 1 - PCV)[facility]art: 2014 Shingrix Vaccine (1 of 2)Shingrix Vaccine (1 of 2)[facility]ertart: 42-97-4498Ashjy panelLipid ScreeningBarney Children's Medical Centertart: 40-72-2243Sjuzzjqxs for malignant neoplasm of colonBarney Children's Medical Centertart: 90-84-8698Sizcxslhx for malignant neoplasm of breastMammogram ScreeningBarney Children's Medical Centertart: 1985 Screening for malignant neoplasm of cervixCervical Cancer ScreeningBarney Children's Medical Centertart: 65-16-5308Jlepy microalbumin profileDTaP,Tdap,Td Vaccine (1 - Tdap) [facility]ertart: 14-05-0273Tcwwcbl ScreeningAnxiety ScreeningBarney Children's Medical Centertart: 43-60-0527Qbgfungedn ScreeningDepression ScreeningUniversity Hospitals [facility] Start: 22-02-6250KXG screeningHIV ScreeningUniversity Hospitals Lake West Medical CenterXR Acromioclavicular joint - bilateral ViewsAcmc Healthcare System Glenbeigh End: 19-88-1777CF Shoulder - right 3 ViewsXR SHOULDER GENERAL 3V OR MORE AP/TRUE AP/OTHER RIGHT Radiology Routine Pain 1 Occurrences yszlsmal42/07/2025 until 01/31/2026[facility] Work Phone: Comment on above:1 Occurrences starting 01/01/2025 until 01/31/2026XR Shoulder - right [facility] Immunizations Immunization DateImmunizationNotesCare FfbklyugPujnzxbr83-50-3008skzindhgj virus vaccine, unspecified formulationAllyson Jamal ESTRADA Work Phone: [facility] Medical CenterMdnegq80-90-4211keetkgobio skin test; purified protein derivative solution, intradermalAllyson Jamal BOWMAN-Davonte Work Phone: [facility] Payers DatePayer CategoryPayerPolicy [id number]'s Compensation [id number] Health InsuranceLOVELACE [facility] [place] [id number] [id number] 2.16.840.1.260534.3.57[id number] 2.16.840.1.694188.3.57[id number] 2.840.1.444639.3.57[id number] 2.16.840.1.230315.19 [id number] 2.16.840.1.4[id number] 2.16.840.1.2[id number] 2.840.1.636382.3.579.2.531 [id number] 2.16.840.1.9[id number] 2.16.840.1.6[id number] 2.16.840.1.094792.3.579.2.531 [id number] 2.16840.1.979950.3.579.2.531Worker's [id number] 2.840.1.185444.19 Social History DateTypeDetailFacilityStart: 11-12-2021 End: 91-77-6921Dmt Assigned At BirthParkview Health [facility] CenterStart: 02-11-2021 End: 55-14-9620Iegnhqr smoking statusNever smoked tobacco (finding)[facility]ertart: 56-00-2708AxsLqpjrq (finding)[facility] CenterStart: 60-19-8335Dje Assigned At BirthFeUniversity Hospitals TriPoint Medical Centertart: 15-86-2844Iontpog use and exposureSmokeless tobacco non-userBarney Children's Medical Centertart: 81-87-1931Swqkmielu beverage intakeNot Asked [facility]ertart: 11-12-2021 End: 82-51-6291Kwcvako of Social functionUniversity Hospitals Lake West Medical CenterAdult Depression Screening Cnyngwuozt8Eakqpgbza ClinicStart: 85-76-0993Cyu assigned at birthNot on fileUniversity Hospitals Lake West Medical Center Functional Status PflqVcpiouycukVbnbpwUznscdww48-40-6986Pdlpuagsiz StatusN/AFamy - [facility]2014Are you deaf, or do you have serious difficulty hearingNo 08/31/2014 1:14 PM Lino Heart MA [facility] HospitalKpilmu96-04-1883Knv you blind, or do you have serious difficulty seeing, even when wearing glassesNo 08/31/2014 1:14 PM Lino Heart MA [facility]2014Do you have serious difficulty walking or climbing stairsNo 08/31/2014 1:14 PM Lino Heart MA [facility]2014Do you have difficulty dressing or bathingNo 08/31/2014 1:14 PM Lino Heart MA [facility] 57-83-2659Htzvrvh of a physical, mental, or emotional condition, do you have difficulty doing errands alone such as visiting a physician's office or shopping No 08/31/2014 1:14 PM Lino Heart MA [facility] Mental Status SqxwQgcmhqcgwtUdvvpeLxqzfjne27-53-6795Gpcuede of a physical, mental, or emotional condition, do you have serious difficulty concentrating, remembering, or making decisionsNo 08/31/2014 1:14 PM Lino Heart MA [facility] Clinical Notes 10-08-2021 to 12-02-2022 Note Date & UrqqGhmzGepfmnwl17-01-3903 Evaluation note* Encounter Date Diagnosis Assessment Notes Treatment Notes Treatment Clinical Notes Nov, Lumbar radiculopathy (ICD-10 - M 54.16) 56 year old female here for follow [...] condition. Overall, she appears to be doing verywell and does not require further treatment at this time. I recommend she increase her activities as tolerated. She is counseled against any excessive bending or twisting. She is advised to call the office if her pain returns. 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 Oct,Sacroiliitis (ICD-10 - M46.1) If her pain persists or worsens, we can consider SI joint injections in the future. Oct,rthritis of lumbosacral spine (ICD-10 - M47.817) If her pain persists or worsens, we can consider lumbar facet MBB in the future. Oct,Other chronic pain (ICD-10 - G89.29) Patient is encouraged to call the office if her symptoms return anfix Other 01-31-2023 Evaluation + Plan noteExtracted from:Title: ED NoteAuthor:Beti ESTRADA, JansenDate:10/27/22 Contusion, hip (S70.00XA: Co ntusion of unspecified hip, initial encounter) Elbow pain (M25.529: Pain in unspecified elbow) Fall (W19.XXXA: Unspecified fall, initial encounter) Orders: XR Elbow 3+ Views Left XR Hip 2-3 Views Left + Pelvis [facility]01-31-2023 Hospital Discharge instructions Patient Education 10/27/2022 [...] exercise. Managing pain, stiffness, and swelling Take gmqr-sun-miirvff and prescription medicines only as told by [...] 09/13/2006 Document Revised: 08/26/2018 Document Reviewed: 10/13/2017 ISC8 Patient Education 2020 [employer]. Follow Up Care 10/27/2022 10:47:33 With:[facility]: [facility] [phone] Address:Unknown When:10/30/2022 11:36:26 [facility]09-02-2022 Evaluation note* Encounter Date Diagnosis Assessment Notes Treatment Notes Treatment Clinical Notes May, Lumbar radiculopathy (ICD-10 - M 54.16) 56 year old female here for follow [...] call the office if her pain returns. May,acroiliitis (ICD-10 - M46.1) If her pain persists or worsens, we can consider SI joint injections in the future. May, rthritis of lumbosacral spine (ICD-10 - M47.817) If her pain persists or worsens, we can consider lumbar facet MBB in the future. May,ther chronic pain (ICD-10 - G89.29) Patient is encouraged to call the office if her symptoms return [facility]fix Other 06-07-2022 Evaluation note* Encounter Date Diagnosis Assessment Notes Treatment Notes Treatment Clinical Notes Feb, Lumbar stenosis with neurogenic claudication (ICD-10 - M48.062) Since the last visit the patient has seen pain management and has significant improvement of buttock and leg pain. She is very happy with her progress at this point we talked about holding off on anysurgical intervention and I will reevaluate the patient in 2 months. In addition I reviewed the EMGof the cervical spine showing findings that are chronic and of no clinical significance. Feb,ervical disc disorder (ICD-10 - M50.90) [employer] Other 05-12-2022 Evaluation note* Encounter Date Diagnosis Assessment Notes Treatment Notes Treatment Clinical Notes January, Lumbar radiculopathy (ICD-10 - M 54.16) 56 year old female here for follow [...] call the office if her pain returns. January,rthritis of lumbosacral spine (ICD-10 - M47.817) If her pain persists or worsens, we can consider lumbar facet MBB in the future. January,2Other chronic pain (ICD-10 - G89.29) Patient is encouraged to call the office if her symptoms return [facility]fix Other 04-18-2022 Evaluation note* Encounter Date Diagnosis Assessment Notes Treatment Notes Treatment Clinical Notes Dec, Lumbar radiculopathy (ICD-10 - M 54.16) 56 year old female presents with complaints of pain down the posterior aspect of the bilateral lower extremities to the knees. She states pain has been present for 8 months and describes it as a dullache. She notes pain is worse with prolonged [...] as well as different treatment options were discussedin detail with patient in regards to patients condition. I recommend we proceed with a L4 and L5 lumbar epidural steroid injection under fluoroscopic guidance. Risks and benefits of procedure explained to patient; patient verbalizes understanding. Dec,Lumbar degenerative disc disease (ICD-10 - M51.36) Continue with current treatment plan. Dec,rthritis of lumbosacral spine (ICD-10 - M47.817) If her pain persists or worsens, we can consider lumbar facet MBB in the future. Dec,ther chronic pain (ICD-10 - G89.29) Continue physical therapy exercises as discussed Dec,therMedical decision making shows a new problem to me with further workup planned or suggested with thepotential for extensive treatment options that were considered with the most applicable given this patient's situation as noted above. Treatment options considered include a combination of physical th erapy approaches, pharmacologic management, and interventional procedures. Those most applicable tothe patient were discussed at this time. Risk [...] prolonged functional impairment requiring constant patient reassessment andhigh-level medical decision making. The amount and complexity of data reviewed is high given that patient labs, radiology reports, and other test were obtained, reviewed and summarized as applicable from the physician portal and/or outside medical records. Pertinent positive and negative findings were considered in medical decision-making. [employer] Other 04-07-2022 Evaluation note* Encounter Date Diagnosis Assessment Notes Treatment Notes Treatment Clinical Notes Dec, Lumbar stenosis with neurogenic claudication (ICD-10 - M48.062) The patient symptoms have changed very little. She has yet to see pain management she is having difficulty seeing her pain management doctor in [place] and she would like to have a doctor out here;I am sending a referral for her across the navarrete to Dr. Kwong. I independently reviewed her MRI. She has spinal stenosis at L3-4, moderate stenosis at L4-5 and malalignment at L2-3 L3-4 and L4-5. She has a ulnar neuropathy type problem but I yet have to see her EMG. She will try to bring the EMG withher the next visit. I independently reviewed the dynamic back x-ray showing translation at L3-4 with overall malalignment and kyphoscoliotic changes at L2-3 L3-4 L4-5. I think neurogenic claudicationis her biggest issue. I reviewed the dynamic neck x-ray which actually looks quite good with no instability. I also independently reviewed her DEXA scan which shows overall good bone quality for age.I will see the patient again in 2 months after her visits with pain management. 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 She was given a slip for work. [employer] Other 04-05-2022 Evaluation note* Encounter Date Diagnosis Assessment Notes Treatment Notes Treatment Clinical Notes Dec, Anal fissure (ICD-10 - K60.2) Dec,Hemorrhoids (ICD-10 - K64.9)HAS HAD THIS FROM CHILDBIRTH PROCEED WITH COLONOSCOPY MEDICATION ORDERED AT THIS TIME. Dec,lood in stool (ICD-10 - K92.1)DOES NOTICE IN THE STOOLS. [employer]fix Other 03-10-2022 NoteHNO ID: [id number] Author: Zari Hernandez MD Service: ? Author [...] when applicable. Raghavendra Browne EMG Zari Hernandez, [facility]03-10-2022 Evaluation note* Encounter Date Diagnosis Assessment [...] us for review. In addition she is havingneurogenic claudication that is mild to moderate in degree. She is functional but cannot do a largeamount of activity. Amazing she can lift 80 pounds at 56 years old and does therapy practice. The pa tient is already scheduled for pain management I think it is a good idea to proceed. I have ordereda 6 view lumbar spine x-ray a dynamic cervical x-ray and will review the EMG with the patient at the end of December. 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 Author Type: Physician Type: [...] Ibuprofen 800 mg q12h prn Physical Therapy Aged Or Disabled Carer Acupuncture Mobic PREVIOUS SPINAL SURGERY: SURGERY #1: C5-7 ACDF - 2015 ACTIVE PROBLEM LIST Cervical Disc Herniation No [...] mouth. ASPIRIN (ASPIR-81 ORAL) Take by mouth. [place]-3 Fatty Acids-Vitamin E (FISH OIL) 1,000 mg cap Take 1 capsule by mouth. LUTEIN ORAL Take by mouth. CALCIUM CARBONATE/VITAMIN D3 (VITAMIN D-3 ORAL) Take by mouth. GLUC BURTON/CHONDR BURTON A NA/SODIUM (MCVBGQUECEO-RWOMSYUNGLY-CTZIRJ ORAL) Take by mouth. melatonin 1 mg [...] the past 6 months (more content not included)...[facility] BabiesXuuwulqv71-46-3041 NoteHNO ID: [id number] Author: Jerod Dukes PA-C Service: ? Author Type: Physician President + Publisher Type: Progress Notes Filed: 10/09/2021 4:45 PM Note Text: Pt can be seen first available with Dr. Rodas 2nd surgical opinion. [facility]erv[facility]2021 NoteHNO ID: [id number] Author: Flor Gimenez Service: ? Author Type: ? Type: Progress Notes Filed: 10/09/2021 4:45 PM Note Text: Patient name: Milena Aquino Are you being referred by a [facility] Provider or Pain Management Provider at [facility]? Yes If answer is YES please schedule [...] the facility where the MRI/CT/myelogram was completed: [address] [address] MRI/CT/myelogram viewable in Epic: No If not, please provide [phone] to fax in imaging reports for review. Also, please inform patient to hand carry imaging disc to appointment. XR (spine) within 12 months: No If YES,? please ask for the name/address of the facility where the XR was completed: N/A Requested provider (First and Last name): Dr. Berenice Rodas Are you interested in a virtual visit [...] [address] Edson Shah [address] [address] Additional Comments : [phone]. Elizabeth Hospitalation noteNo InformationNort [employer] Other Evaluation note* Diagnosis Onset Date Resolution Status Admit Date Lumbar spondylosis acuteFebruary 2024 10:42amMammogram declinedacuteFebruary 2024 10:42am ObesityacuteFebruary 2024 10:42amShoulder pain, rightacuteFebruary 2024 10:42amWellness examinationacuteFebruary 2024 10:42am [facility] Work Phone: Evaluation note* Diagnosis Pain- Primary Generalized pain documented in this encounter [facility]History [facility] Narrative - Reported* Type Description Date Medical History Arthritis Surgical Historycervical fusion-Doctor YooHospitalization HistorySee Above [facility] Voice Assist Other History general Narrative - Reported* Type Description Date Medical History Arthritis Surgical Historycervical fusion-Doctor YooSurgical HistoryC [id number] Hospitalization HistorySee Above [facility] Voice Assist Other History general Narrative - Reported* Type Description Date Medical History Arthritis Medical HistoryhemorroidsSurgical Historycervical fusion-Doctor YooSurgical HistoryC [id number] HistorySee Above [facility] Voice Assist Other History general Narrative - Reported* Type Description Date Medical History Arthritis Medical HistoryhemorroidsSurgical Historycervical fusion-Doctor YooSurgical HistoryC [id number] Historyrectal surgeryHospitalization HistorySee Above [facility] Voice Assist Other Hospital course Narrative No data available for this section [facility] No data available for this section [facility] HospitalReason for visit NarrativeReferral Dr. Vito Ramey Mid back pain down legsNortBradford Regional Medical Center Voice Assist Other Summary Purpose Family History Relationship Condition Age at Onset Recorded Date/T regine Not Specified No pertinent family history Unknown fatherArthritisUnknownmotherArthritisUnknownfatherDeceasedUnknownmotherDeceased Unknown Advance Directives Advance Directive Response Recorded Date/ Time Advance Directives No February 04 8 8:29am Reason for Referral Reason *Waiting for appt Evaluate and Treat Back and Leg Pain Diagnosis 1 Lumbar stenosis with neurogenic claudication (M48.062) Referral Organization [facility] Ne urosurgery Referring Provider First Name Shyla Referring Provider Last Name Rosa Isela Referring Provider Specialty Neurologica l Surgery Referred Organization [facility] Pain Managemen t Referred Provider Chidi Kwong Referred Address [address] [place] [id number] Referred Provider Specialty Pain Medicin e Referral Priority Routine General Notes Fore, Julisa M 022 11:05:03 AM >Received today and sent P2P Chief Complaint and Reason for Visit Chief Complaint Admit Date wellness November 01, 2024 1 0:42am Reason for Visit Admit Date Lumbar spondylosis November 01, 2024 1 0:42am Mammogram declined November 01, 2024 1 0:42am Obesity November 01, 2024 1 0:42am Shoulder pain, right November 01, 2024 10:42am Wellness examination November 01, 2024 10:42am Additional Source Comments INFORMATION SOURCE (unrecogn ized section and content) DATE CREATED AUTHOR 11/14/2021 [facility] DATE CREATED AUTHOR AUTHOR'S ORGANIZ ATION 12/15/2021 [facility] DATE CREATED AUTHOR AUTHOR'S ORGANIZ ATION 08/29/2022 [facility] DATE CREATED AUTHOR AUTHOR'S ORGANIZ ATION 10/30/2022 [facility] DATE CREATED AUTHOR AUTHOR'S ORGANIZ ATION 10/31/2022 [facility] REASON FOR VISIT (unrecogniz ed section and content) PT HERE FOR POSSIBLE FISSURE . PATIENT STATES THAT PAIN IS AT BASELINE AT THIS TIME AND SHE DOES HAVE HEMORRHOIDS., NO PREVIOUS COLONOSCOPYf/up Xrays and DEXA resultsREF BY DR SHYLA BARCENAS FOR LUMBAR STENOSIS AND LEG PAINL4, L5 LUMBAR EPIDURAL STEROID INJPain Medicine Office NotesF/U AFTER PROCEDUREf/u Pain ManagementL3 AND L4 TRANSFORAMINAL EPIDURAL STEROID INJECTIONF/U AFTER L3 AND L4 LTRBILAT BACK PAIN RADIATING LLENo InformationF/U AFTER L3,4 LTR ON RIGHTNo Information Patient Care team informatio n (unrecognized section and content) Team Status: Active Member Role Status Dates Tino Ramey DO Primary Care Provider Active Team Status: Active Member Role Status Dates Tino Ramey DO Primary Care Provide r, Attending Provider Active Start: October 26, 2024 Team Status: Inactive Member Role Status Dates Tino Ramey DO Primary Care Provide r, Attending Provider Active Start: November 01, 2024 End: November 01, 2024Team MemberRelationshipSpecialtyStart DateEnd Date Tino Ramey DO [address] [place] [address] PCP - General01/05/01 Goals (unrecognized section and content) Goals may be documented in a n alternate section Source Comments (unrecognize d section and content) In the event this informatio n is protected by the Federal Confidentiality of Alcohol and Drug Abuse Patient Records regulations: The Federal rules restrict any use of the information to criminally investigate or prosecute any alcohol or drug abuse patient.[facility] FOR RECORDS PERTAINING TO PATIENTS WHO ARE [...] BE BASED ON THE PRIMARY CLINICAL RECORDS. [facility]. provides no warranty or guarantee of the accuracy or completeness of information in this document.
[2025-08-01 12:42] LABS: Thyroid Stimulating Hormone 1.401 uIU/mL (0.358-3.740)
== END 2025-08-01 11:43 | disposition home or self-care (01) ==
LOC: LAB 11:43
PROVIDERS: PCP Internal Medicine; Visit Provider Internal Medicine
DX: R63.5 Abnormal weight gain (principal); R53.83 Other fatigue; R68.89 Other general symptoms and signs
CPT/HCPCS: 36415; 84439; 84443; 84480; 86376